=== PATIENT | female | born 1945 | race Caucasian/White ===

== ENCOUNTER → 2018-03-08 | Outpatient (CLI) | payer BC ==
[~2018-03-08] MED LIST: ALUM320SU PO; AMLO10 PO; AMLO5 PO; ASPI325 PO; ASPI81EC PO; ATOR20 PO; AZAR; CARV25 PO; CEPH500 PO; CLON.1 PO; CLON1; CYAN500 PO; DILT360ER; DILT360ER PO; FAMO20 PO; FERR160 PO; FURO40 PO; GABA100 PO; HYDACE5 PO; HYDRA50 PO; Humalog100 UNIT/1; INSLI100I; INSUASPI SUBQ; INSULANI; INSULANPEN; IRON150C PO; LEVFLO250 PO; LOSA50 PO; LOSARTAN POTAS100 MG PO; META800 PO; METF500; MINO10 PO; ONDA4ODT MM; PANT40 PO; PIOG45; PIOG45 PO; PROC10 PO; PROM25 PO; VITAMIN D31000 UNIT PO
[2018-03-08 18:30] LABS: BASOPHILS ABSOLUTE AUTO 0.02 K/mm3 (0.00-0.23); BASOPHILS PERCENT AUTO 0 % (0-2); EOSINOPHILS ABSOLUTE AUTO 0.01 K/mm3 (0.00-0.68); EOSINOPHILS PERCENT AUTO 0 % (0-6); Hematocrit 33.3 % (33.0-51.0); Hemoglobin 10.8 g/dL (11.5-16.0); IMMATURE GRAN ABSOLUTE AUTO 0.02 K/mm3 (0.00-0.10); IMMATURE GRAN PERCENT AUTO 0 % (0-1); LYMPHOCYTES ABSOLUTE AUTO 1.89 K/mm3 (0.84-5.20); LYMPHOCYTES PERCENT AUTO 25 % (21-46); MONOCYTES PERCENT AUTO 5 % (4-13); Mean Corpuscular HGB 33.4 pg (26.0-34.0); Mean Corpuscular HGB Conc 32.4 g/dL (31.5-36.5); Mean Corpuscular Volume 103 fL (80-100); Mean Platelet Volume 11.3 fL (9.1-12.4); NEUTROPHILS ABSOLUTE AUTO 5.35 K/mm3 (1.96-9.15); NEUTROPHILS PERCENT AUTO 70 % (41-73); Platelet Count 194 K/mm3 (150-400); RDW Coefficient Variation 14.2 % (11.7-14.2); RDW Standard Deviation 52.8 fL (35.1-46.3); Red Blood Cell Count 3.23 M/mm3 (3.80-5.20); White Blood Cell Count 7.69 K/mm3 (4.00-11.30)
[2018-03-08 18:31] LABS: Alanine Aminotransfer (ALT/SGP 24 U/L (12-78); Albumin, Blood 3.3 g/dL (3.4-5.0); Albumin/Globulin Ratio 0.9 (0.8-1.8); Alk Phos 98 U/L (50-136); Amylase, Blood 60 U/L (25-115); Anion Gap 13 mmol/L (6-16); Aspartate Aminotrans (AST/SGOT 15 U/L (12-37); Bilirubin, Direct <0.1 mg/dL (0.0-0.3); Bilirubin, Indirect Unable to Calculate mg/dL (0.1-0.7); Bilirubin, Total 0.4 mg/dL (0.1-1.0); Blood Urea Nitrogen 43 mg/dL (8-24); Bun/Creatinine Ratio 13.1 (12.0-20.0); CO2, Blood 17 mmol/L (21-32); Calcium, Blood 7.7 mg/dL (8.5-10.1); Chloride, Blood 111 mmol/L (98-108); Creatinine, Blood 3.28 mg/dL (0.40-1.00); Globulin, Blood 3.5 g/dL (2.2-4.0); Glomerular Filtration Rate 15 (60-); Glucose, Blood 233 mg/dL (70-99); Phosphorus, Blood 4.7 mg/dL (2.5-4.9); Sodium, Blood 141 mmol/L (136-145); Total Protein, Blood 6.8 g/dL (6.4-8.2)
== END | disposition home or self-care (01) ==
LOC: LAB SHORT 17:00 → LAB 17:00
PROVIDERS: Internal Medicine Nephrology
DX: N18.4 Chronic kidney disease, stage 4 (severe) (principal); D63.1 Anemia in chronic kidney disease; N25.81 Secondary hyperparathyroidism of renal origin; E55.9 Vitamin D deficiency, unspecified; E78.00 Pure hypercholesterolemia, unspecified; R76.9 Abnormal immunological finding in serum, unspecified; R94.5 Abnormal results of liver function studies; R94.6 Abnormal results of thyroid function studies
CPT/HCPCS: 80053; 82150; 82248; 82306; 83690; 84100; 85025

== ENCOUNTER 2018-03-09 09:09 | Inpatient (IN) | payer BC ==
[~2018-03-09] VITALS: Ht 167.6 cm; Wt 67.0 kg
[~2018-03-09 09:09] MED LIST changes: -ALUM320SU PO; -CLON.1 PO; -GABA100 PO; -Humalog100 UNIT/1; -LEVFLO250 PO; -ONDA4ODT MM; -PANT40 PO; -VITAMIN D31000 UNIT PO
[2018-03-09 10:00] LABS: Calcium, Ionized (POC) 1.08 mmol/L (1.10-1.46); Chloride (POC) 114 mmol/L (98-108); Creatinine (POC) 3.9 mg/dL (0.6-1.0); Glucose (ISTAT POC) 432 mg/dL (70-99); Hemoglobin (POC) 11.2 g/dL (12.0-16.0); Potassium (POC) 4.7 mmol/L (3.5-5.5); Sodium (POC) 143 mmol/L (135-148); Total CO2 (POC) 13 mmol/L (21-32)
[2018-03-09 10:10] LABS: PCO2 Arterial 25.6 mmHg (35-45); PO2 Arterial 89.6 mmHg (80-100); pH Blood Arterial 7.22 (7.35-7.45)
[2018-03-09 10:33] LABS: BASOPHILS ABSOLUTE AUTO 0.03 K/mm3 (0.00-0.23); BASOPHILS PERCENT AUTO 0 % (0-2); EOSINOPHILS PERCENT AUTO 0 % (0-6); Hematocrit 36.5 % (33.0-51.0); Hemoglobin 11.4 g/dL (11.5-16.0); IMMATURE GRAN ABSOLUTE AUTO 0.08 K/mm3 (0.00-0.10); IMMATURE GRAN PERCENT AUTO 1 % (0-1); LYMPHOCYTES ABSOLUTE AUTO 2.45 K/mm3 (0.84-5.20); LYMPHOCYTES PERCENT AUTO 20 % (21-46); MONOCYTES ABSOLUTE AUTO 0.55 K/mm3 (0.16-1.47); MONOCYTES PERCENT AUTO 4 % (4-13); Mean Corpuscular HGB 32.2 pg (26.0-34.0); Mean Corpuscular HGB Conc 31.2 g/dL (31.5-36.5); Mean Corpuscular Volume 103 fL (80-100); Mean Platelet Volume 11.6 fL (9.1-12.4); NEUTROPHILS ABSOLUTE AUTO 9.25 K/mm3 (1.96-9.15); NEUTROPHILS PERCENT AUTO 75 % (41-73); Platelet Count 204 K/mm3 (150-400); RDW Coefficient Variation 14.4 % (11.7-14.2); RDW Standard Deviation 53.8 fL (35.1-46.3); Red Blood Cell Count 3.54 M/mm3 (3.80-5.20); White Blood Cell Count 12.36 K/mm3 (4.00-11.30)
[2018-03-09 10:55] LABS: Albumin, Blood 3.5 g/dL (3.4-5.0); Albumin/Globulin Ratio 0.8 (0.8-1.8); Bilirubin, Total 0.5 mg/dL (0.1-1.0); Bun/Creatinine Ratio 13.1 (12.0-20.0); Calcium, Blood 8.3 mg/dL (8.5-10.1); Creatinine, Blood 3.58 mg/dL (0.40-1.00); Globulin, Blood 4.3 g/dL (2.2-4.0); Potassium, Blood 4.5 mmol/L (3.5-5.5); Total Protein, Blood 7.8 g/dL (6.4-8.2); Troponin I 0.155 ng/mL (0.000-0.040)
[2018-03-09] MEDS ORDERED: CLON.1 PO (11:48)
[2018-03-09] MEDS ORDERED: GABA100 PO (11:49)
[2018-03-09] MEDS ORDERED: FURO40 PO (11:50)
[2018-03-09] MEDS ORDERED: PANT40 PO (11:51)
[2018-03-09] MEDS ORDERED: ALUM320SU PO (11:56)
[2018-03-09] MEDS ORDERED: LEVFLO250 PO (11:57)
[2018-03-09] MEDS ORDERED: ONDA4ODT MM (11:58)
[2018-03-09 16:32] LABS: Source, Urine Catheter
[2018-03-09 16:42] LABS: Troponin I 0.375 ng/mL (0.000-0.040)
[2018-03-09 16:42] LABS: Appearance, Urine Hazy (Clear); Bilirubin, Urine Neg (Neg); Blood, Urine 3+ (Neg); Color, Urine Yellow (P-Yellow); Glucose Qualitative, Urine 4+ (Neg); Ketones, Urine 3+ (Neg); Leukocyte Esterase, Urine Neg (Neg); Nitrite, Urine Neg (Neg); Protein, Urine 4+ (Neg); Specific Gravity, Urine 1.015 (1.003-1.022); Urobilinogen, Urine NORM (Normal)
[2018-03-09] MEDS ORDERED: Humalog100 UNIT/1 (16:52)
[2018-03-09 17:01] LABS: Amorphous Light (0-Heavy); White Blood Cells, Urine 0-2 /hpf (0-5)
[2018-03-09 17:03] LABS: Bacteria Few /hpf; Squamous Epithelial Cells Few /hpf (Few)
[2018-03-09] MEDS ORDERED: VITAMIN D31000 UNIT PO (17:04)
[2018-03-09 17:34] LABS: Beta-hydroxybutyrate 73.1 mg/dL (0.2-2.8); Potassium, Blood 4.7 mmol/L (3.5-5.5)
[2018-03-09 18:21] LABS: Bun/Creatinine Ratio 14.2 (12.0-20.0); Creatinine, Blood 3.37 mg/dL (0.40-1.00); Potassium, Blood 4.3 mmol/L (3.5-5.5)
[2018-03-09 21:41] LABS: Bun/Creatinine Ratio 14.3 (12.0-20.0); Calcium, Blood 7.9 mg/dL (8.5-10.1); Creatinine, Blood 3.42 mg/dL (0.40-1.00); Potassium, Blood 3.5 mmol/L (3.5-5.5)
[2018-03-10 00:30] LABS: Potassium, Blood 3.4 mmol/L (3.5-5.5)
[2018-03-10 04:13] LABS: Hemoglobin 9.8 g/dL (11.5-16.0)
[2018-03-10 04:38] LABS: Albumin, Blood 2.9 g/dL (3.4-5.0); Anion Gap 9 mmol/L (6-16); Blood Urea Nitrogen 46 mg/dL (8-24); Bun/Creatinine Ratio 13.2 (12.0-20.0); CO2, Blood 22 mmol/L (21-32); Chloride, Blood 122 mmol/L (98-108); Creatinine, Blood 3.48 mg/dL (0.40-1.00); Glomerular Filtration Rate 14 (60-); Glucose, Blood 135 mg/dL (70-99); Magnesium, Blood 2.1 mg/dL (1.6-2.4); Phosphorus, Blood 2.5 mg/dL (2.5-4.9); Potassium, Blood 3.1 mmol/L (3.5-5.5); Sodium, Blood 153 mmol/L (136-145); Vancomycin, Random 14.5 ug/mL
[2018-03-11 03:31] LABS: Hematocrit 30.2 % (33.0-51.0); Hemoglobin 9.3 g/dL (11.5-16.0)
[2018-03-11 03:52] LABS: Albumin, Blood 2.5 g/dL (3.4-5.0); Anion Gap 10 mmol/L (6-16); Blood Urea Nitrogen 35 mg/dL (8-24); Bun/Creatinine Ratio 11.3 (12.0-20.0); CHOL/HDL RATIO 3.2; CO2, Blood 22 mmol/L (21-32); Calcium, Blood 7.7 mg/dL (8.5-10.1); Chloride, Blood 115 mmol/L (98-108); Cholesterol 146 mg/dL (50-200); Creatinine, Blood 3.09 mg/dL (0.40-1.00); Glomerular Filtration Rate 16 (60-); Glucose, Blood 160 mg/dL (70-99); HDL Cholesterol 46 mg/dL (>39); Magnesium, Blood 2.1 mg/dL (1.6-2.4); Phosphorus, Blood 3.1 mg/dL (2.5-4.9); Potassium, Blood 3.9 mmol/L (3.5-5.5); Sodium, Blood 147 mmol/L (136-145)
[2018-03-11 03:53] LABS: LDL/HDL RATIO 1.3; Low Density Lipoprotein Chol 59 mg/dL (0-110); Triglycerides 206 mg/dL (30-160); Very Low Density Lipoprot Chol 41 mg/dL (6-32)
== END 2018-03-11 14:01 | disposition home or self-care (01) | DRG 871 ==
LOC: ER 09:09 → ICUW 11:20 → PCU 11:20 → MEDS 11:20 → PCU 13:17 → MEDS 13:41 → PCU 14:28 → ICUW 15:47 → PCU 03-10 15:30
PROVIDERS: Emergency Medicine; Internal Medicine; Internal Medicine Nephrology
DX: A41.9 Sepsis, unspecified organism (principal); E11.10 Type 2 diabetes mellitus with ketoacidosis without coma; N17.0 Acute kidney failure with tubular necrosis; J18.9 Pneumonia, unspecified organism; I21.4 Non-ST elevation (NSTEMI) myocardial infarction; I13.2 Hypertensive heart and chronic kidney disease with heart failure and with stage 5 chronic kidney disease, or end stage renal disease; N18.5 Chronic kidney disease, stage 5; I50.30 Unspecified diastolic (congestive) heart failure; E87.0 Hyperosmolality and hypernatremia; E11.22 Type 2 diabetes mellitus with diabetic chronic kidney disease; Z79.4 Long term (current) use of insulin; D63.8 Anemia in other chronic diseases classified elsewhere; E21.3 Hyperparathyroidism, unspecified; I25.10 Atherosclerotic heart disease of native coronary artery without angina pectoris; R65.20 Severe sepsis without septic shock; E87.6 Hypokalemia; E86.9 Volume depletion, unspecified
CPT/HCPCS: 36415; 36600; 51702; 71045; 74176; 80047; 80048; 80051; 80053; 80061; 80069; 80202; 81001; 82010; 82150; 82248; 82306; 82803; 82947; 83036; 83605; 83690; 83735; 83880; 83930; 84100; 84295; 84484; 85014; 85018; 85025; 87040; 87086; 87493; 93005; 93010; 93306; 96361; 96374; 96375; 99285-25; C9113; J0360; J0696; J0881; J1650; J1815; J2405; J2765; J3370; J3480; J7030; J7042; J7050

== ENCOUNTER 2018-04-20 09:20 | Inpatient (IN) | payer BC ==
[~2018-04-20] VITALS: Ht 170.2 cm; Wt 65.2 kg
[~2018-04-20 09:20] MED LIST changes: +ALUM320SU PO; +CLON.1 PO; +GABA100 PO; +Humalog100 UNIT/1 SC; -INSULANPEN; +INSULANPEN SC; +LEVFLO250 PO; -LOSARTAN POTAS100 MG PO; +ONDA4ODT MM; +PANT40 PO; +VITAMIN D31000 UNIT PO
[2018-04-20] MEDS ORDERED: Omeprazole20 M1 PO (09:57)
[2018-04-20] MEDS ORDERED: Adalat Cc30 MG PO (10:03)
[2018-04-20] MEDS ORDERED: POTCHL10ER PO (10:05)
[2018-04-20 10:09] LABS: BASOPHILS ABSOLUTE AUTO 0.04 K/mm3 (0.00-0.23); BASOPHILS PERCENT AUTO 0 % (0-2); EOSINOPHILS ABSOLUTE AUTO 0.06 K/mm3 (0.00-0.68); EOSINOPHILS PERCENT AUTO 0 % (0-6); Hematocrit 37.7 % (33.0-51.0); IMMATURE GRAN ABSOLUTE AUTO 0.08 K/mm3 (0.00-0.10); IMMATURE GRAN PERCENT AUTO 1 % (0-1); LYMPHOCYTES ABSOLUTE AUTO 2.61 K/mm3 (0.84-5.20); LYMPHOCYTES PERCENT AUTO 17 % (21-46); MONOCYTES PERCENT AUTO 8 % (4-13); Mean Corpuscular HGB 31.9 pg (26.0-34.0); Mean Corpuscular HGB Conc 31.8 g/dL (31.5-36.5); Mean Corpuscular Volume 100 fL (80-100); Mean Platelet Volume 11.2 fL (9.1-12.4); NEUTROPHILS ABSOLUTE AUTO 11.62 K/mm3 (1.96-9.15); NEUTROPHILS PERCENT AUTO 74 % (41-73); Platelet Count 231 K/mm3 (150-400); RDW Coefficient Variation 13.4 % (11.7-14.2); RDW Standard Deviation 49.2 fL (35.1-46.3); Red Blood Cell Count 3.76 M/mm3 (3.80-5.20); White Blood Cell Count 15.61 K/mm3 (4.00-11.30)
[2018-04-20 10:27] LABS: Albumin/Globulin Ratio 0.7 (0.8-1.8); Bilirubin, Total 0.4 mg/dL (0.1-1.0); Bun/Creatinine Ratio 14.5 (12.0-20.0); Calcium, Blood 8.4 mg/dL (8.5-10.1); Creatinine, Blood 3.51 mg/dL (0.40-1.00); Globulin, Blood 4.5 g/dL (2.2-4.0); Potassium, Blood 4.7 mmol/L (3.5-5.5); Total Protein, Blood 7.5 g/dL (6.4-8.2); Troponin I 0.065 ng/mL (0.000-0.040)
[2018-04-21 04:58] LABS: BASOPHILS ABSOLUTE AUTO 0.02 K/mm3 (0.00-0.23); BASOPHILS PERCENT AUTO 0 % (0-2); EOSINOPHILS ABSOLUTE AUTO 0.04 K/mm3 (0.00-0.68); EOSINOPHILS PERCENT AUTO 0 % (0-6); Hematocrit 33.8 % (33.0-51.0); Hemoglobin 10.8 g/dL (11.5-16.0); IMMATURE GRAN ABSOLUTE AUTO 0.08 K/mm3 (0.00-0.10); IMMATURE GRAN PERCENT AUTO 1 % (0-1); LYMPHOCYTES ABSOLUTE AUTO 2.55 K/mm3 (0.84-5.20); LYMPHOCYTES PERCENT AUTO 22 % (21-46); MONOCYTES ABSOLUTE AUTO 0.75 K/mm3 (0.16-1.47); MONOCYTES PERCENT AUTO 6 % (4-13); Mean Corpuscular HGB 32.2 pg (26.0-34.0); Mean Corpuscular Volume 101 fL (80-100); Mean Platelet Volume 11.6 fL (9.1-12.4); NEUTROPHILS ABSOLUTE AUTO 8.27 K/mm3 (1.96-9.15); NEUTROPHILS PERCENT AUTO 71 % (41-73); Platelet Count 194 K/mm3 (150-400); RDW Coefficient Variation 13.8 % (11.7-14.2); RDW Standard Deviation 51.5 fL (35.1-46.3); Red Blood Cell Count 3.35 M/mm3 (3.80-5.20); White Blood Cell Count 11.71 K/mm3 (4.00-11.30)
[2018-04-21 05:23] LABS: Albumin, Blood 2.2 g/dL (3.4-5.0); Albumin/Globulin Ratio 0.5 (0.8-1.8); Alk Phos 156 U/L (50-136); Anion Gap 10 mmol/L (6-16); Aspartate Aminotrans (AST/SGOT 806 U/L (12-37); Bilirubin, Total 0.6 mg/dL (0.1-1.0); Blood Urea Nitrogen 46 mg/dL (8-24); Bun/Creatinine Ratio 13.8 (12.0-20.0); CO2, Blood 20 mmol/L (21-32); Calcium, Blood 7.8 mg/dL (8.5-10.1); Chloride, Blood 112 mmol/L (98-108); Creatinine, Blood 3.34 mg/dL (0.40-1.00); Globulin, Blood 4.1 g/dL (2.2-4.0); Glomerular Filtration Rate 14 (60-); Glucose, Blood 185 mg/dL (70-99); Magnesium, Blood 1.6 mg/dL (1.6-2.4); Phosphorus, Blood 2.6 mg/dL (2.5-4.9); Potassium, Blood 4.3 mmol/L (3.5-5.5); Sodium, Blood 142 mmol/L (136-145); Total Protein, Blood 6.3 g/dL (6.4-8.2); Vancomycin, Random 16.6 ug/mL
[2018-04-21 05:27] LABS: Alanine Aminotransfer (ALT/SGP 274 U/L (12-78)
[2018-04-22 04:55] LABS: BASOPHILS ABSOLUTE AUTO 0.03 K/mm3 (0.00-0.23); BASOPHILS PERCENT AUTO 0 % (0-2); EOSINOPHILS ABSOLUTE AUTO 0.19 K/mm3 (0.00-0.68); EOSINOPHILS PERCENT AUTO 1 % (0-6); Hematocrit 30.6 % (33.0-51.0); Hemoglobin 9.6 g/dL (11.5-16.0); IMMATURE GRAN ABSOLUTE AUTO 0.13 K/mm3 (0.00-0.10); IMMATURE GRAN PERCENT AUTO 1 % (0-1); LYMPHOCYTES ABSOLUTE AUTO 2.34 K/mm3 (0.84-5.20); LYMPHOCYTES PERCENT AUTO 16 % (21-46); MONOCYTES ABSOLUTE AUTO 0.94 K/mm3 (0.16-1.47); MONOCYTES PERCENT AUTO 6 % (4-13); Mean Corpuscular HGB 31.5 pg (26.0-34.0); Mean Corpuscular HGB Conc 31.4 g/dL (31.5-36.5); Mean Corpuscular Volume 100 fL (80-100); NEUTROPHILS ABSOLUTE AUTO 11.12 K/mm3 (1.96-9.15); NEUTROPHILS PERCENT AUTO 75 % (41-73); Platelet Count 173 K/mm3 (150-400); RDW Coefficient Variation 13.7 % (11.7-14.2); RDW Standard Deviation 51.2 fL (35.1-46.3); Red Blood Cell Count 3.05 M/mm3 (3.80-5.20); White Blood Cell Count 14.75 K/mm3 (4.00-11.30)
[2018-04-22 05:18] LABS: Anion Gap 12 mmol/L (6-16); Blood Urea Nitrogen 54 mg/dL (8-24); Bun/Creatinine Ratio 12.8 (12.0-20.0); CO2, Blood 17 mmol/L (21-32); Calcium, Blood 8.2 mg/dL (8.5-10.1); Chloride, Blood 110 mmol/L (98-108); Creatinine, Blood 4.22 mg/dL (0.40-1.00); Glomerular Filtration Rate 11 (60-); Glucose, Blood 249 mg/dL (70-99); Magnesium, Blood 1.7 mg/dL (1.6-2.4); Phosphorus, Blood 3.4 mg/dL (2.5-4.9); Potassium, Blood 4.5 mmol/L (3.5-5.5); Sodium, Blood 139 mmol/L (136-145); Vancomycin, Random 22.3 ug/mL
[2018-04-22 12:55] LABS: Vancomycin, Random 14.3 ug/mL
[2018-04-23 04:38] LABS: Hematocrit 25.3 % (33.0-51.0); Hemoglobin 8.1 g/dL (11.5-16.0)
[2018-04-23 04:58] LABS: Albumin, Blood 1.8 g/dL (3.4-5.0); Anion Gap 10 mmol/L (6-16); Blood Urea Nitrogen 41 mg/dL (8-24); Bun/Creatinine Ratio 9.4 (12.0-20.0); CO2, Blood 28 mmol/L (21-32); Calcium, Blood 7.5 mg/dL (8.5-10.1); Chloride, Blood 97 mmol/L (98-108); Creatinine, Blood 4.34 mg/dL (0.40-1.00); Glomerular Filtration Rate 11 (60-); Glucose, Blood 242 mg/dL (70-99); Magnesium, Blood 1.8 mg/dL (1.6-2.4); Phosphorus, Blood 3.3 mg/dL (2.5-4.9); Potassium, Blood 3.7 mmol/L (3.5-5.5); Sodium, Blood 135 mmol/L (136-145)
[2018-04-24 02:17] LABS: HBSAG SCREEN Negative (Negative); HEP A AB, IGM Negative (Negative); HEP B CORE AB, IGM Negative (Negative); HEP C VIRUS AB 0.1 (0.0-0.9)
[2018-04-24 05:07] LABS: BASOPHILS ABSOLUTE AUTO 0.02 K/mm3 (0.00-0.23); BASOPHILS PERCENT AUTO 0 % (0-2); EOSINOPHILS ABSOLUTE AUTO 0.19 K/mm3 (0.00-0.68); EOSINOPHILS PERCENT AUTO 2 % (0-6); Hematocrit 25.3 % (33.0-51.0); Hemoglobin 7.9 g/dL (11.5-16.0); IMMATURE GRAN ABSOLUTE AUTO 0.06 K/mm3 (0.00-0.10); IMMATURE GRAN PERCENT AUTO 1 % (0-1); LYMPHOCYTES ABSOLUTE AUTO 1.86 K/mm3 (0.84-5.20); LYMPHOCYTES PERCENT AUTO 20 % (21-46); MONOCYTES ABSOLUTE AUTO 0.92 K/mm3 (0.16-1.47); MONOCYTES PERCENT AUTO 10 % (4-13); Mean Corpuscular HGB 31.1 pg (26.0-34.0); Mean Corpuscular HGB Conc 31.2 g/dL (31.5-36.5); Mean Corpuscular Volume 100 fL (80-100); Mean Platelet Volume 11.9 fL (9.1-12.4); NEUTROPHILS ABSOLUTE AUTO 6.36 K/mm3 (1.96-9.15); NEUTROPHILS PERCENT AUTO 68 % (41-73); Platelet Count 113 K/mm3 (150-400); RDW Coefficient Variation 13.9 % (11.7-14.2); RDW Standard Deviation 50.4 fL (35.1-46.3); Red Blood Cell Count 2.54 M/mm3 (3.80-5.20); White Blood Cell Count 9.41 K/mm3 (4.00-11.30)
[2018-04-24 05:22] LABS: Albumin, Blood 1.7 g/dL (3.4-5.0); Anion Gap 7 mmol/L (6-16); Blood Urea Nitrogen 34 mg/dL (8-24); Bun/Creatinine Ratio 8.1 (12.0-20.0); CO2, Blood 31 mmol/L (21-32); Calcium, Blood 7.8 mg/dL (8.5-10.1); Chloride, Blood 97 mmol/L (98-108); Creatinine, Blood 4.22 mg/dL (0.40-1.00); Glomerular Filtration Rate 11 (60-); Glucose, Blood 185 mg/dL (70-99); Phosphorus, Blood 4.1 mg/dL (2.5-4.9); Potassium, Blood 3.7 mmol/L (3.5-5.5); Sodium, Blood 135 mmol/L (136-145); Vancomycin, Random 20.7 ug/mL
[2018-04-24 11:49] LABS: Vancomycin, Random 11.6 ug/mL
[2018-04-25 05:37] LABS: BASOPHILS ABSOLUTE AUTO 0.02 K/mm3 (0.00-0.23); BASOPHILS PERCENT AUTO 0 % (0-2); EOSINOPHILS ABSOLUTE AUTO 0.24 K/mm3 (0.00-0.68); EOSINOPHILS PERCENT AUTO 3 % (0-6); Hematocrit 28.6 % (33.0-51.0); Hemoglobin 9.1 g/dL (11.5-16.0); IMMATURE GRAN ABSOLUTE AUTO 0.05 K/mm3 (0.00-0.10); IMMATURE GRAN PERCENT AUTO 1 % (0-1); LYMPHOCYTES ABSOLUTE AUTO 2.35 K/mm3 (0.84-5.20); LYMPHOCYTES PERCENT AUTO 28 % (21-46); MONOCYTES ABSOLUTE AUTO 0.89 K/mm3 (0.16-1.47); MONOCYTES PERCENT AUTO 11 % (4-13); Mean Corpuscular HGB Conc 31.8 g/dL (31.5-36.5); Mean Platelet Volume 12.3 fL (9.1-12.4); NEUTROPHILS ABSOLUTE AUTO 4.88 K/mm3 (1.96-9.15); NEUTROPHILS PERCENT AUTO 58 % (41-73); Platelet Count 145 K/mm3 (150-400); RDW Coefficient Variation 15.4 % (11.7-14.2); RDW Standard Deviation 54.8 fL (35.1-46.3); Red Blood Cell Count 2.94 M/mm3 (3.80-5.20); White Blood Cell Count 8.43 K/mm3 (4.00-11.30)
[2018-04-25 05:38] LABS: Mean Corpuscular Volume 97 fL (80-100)
[2018-04-25 06:07] LABS: Albumin, Blood 1.8 g/dL (3.4-5.0); Anion Gap 11 mmol/L (6-16); Blood Urea Nitrogen 26 mg/dL (8-24); Bun/Creatinine Ratio 7.2 (12.0-20.0); CO2, Blood 29 mmol/L (21-32); Calcium, Blood 8.1 mg/dL (8.5-10.1); Chloride, Blood 95 mmol/L (98-108); Creatinine, Blood 3.59 mg/dL (0.40-1.00); Glomerular Filtration Rate 13 (60-); Glucose, Blood 174 mg/dL (70-99); Magnesium, Blood 1.9 mg/dL (1.6-2.4); Phosphorus, Blood 4.2 mg/dL (2.5-4.9); Potassium, Blood 3.3 mmol/L (3.5-5.5); Sodium, Blood 135 mmol/L (136-145)
[2018-04-25 11:46] LABS: Vancomycin, Random 14.3 ug/mL
[2018-04-26 04:46] LABS: BASOPHILS ABSOLUTE AUTO 0.03 K/mm3 (0.00-0.23); BASOPHILS PERCENT AUTO 0 % (0-2); EOSINOPHILS ABSOLUTE AUTO 0.24 K/mm3 (0.00-0.68); EOSINOPHILS PERCENT AUTO 3 % (0-6); Hematocrit 30.3 % (33.0-51.0); Hemoglobin 9.6 g/dL (11.5-16.0); IMMATURE GRAN ABSOLUTE AUTO 0.07 K/mm3 (0.00-0.10); IMMATURE GRAN PERCENT AUTO 1 % (0-1); LYMPHOCYTES ABSOLUTE AUTO 2.26 K/mm3 (0.84-5.20); LYMPHOCYTES PERCENT AUTO 27 % (21-46); MONOCYTES ABSOLUTE AUTO 0.83 K/mm3 (0.16-1.47); MONOCYTES PERCENT AUTO 10 % (4-13); Mean Corpuscular HGB 31.4 pg (26.0-34.0); Mean Corpuscular HGB Conc 31.7 g/dL (31.5-36.5); Mean Corpuscular Volume 99 fL (80-100); Mean Platelet Volume 11.9 fL (9.1-12.4); NEUTROPHILS ABSOLUTE AUTO 5.07 K/mm3 (1.96-9.15); NEUTROPHILS PERCENT AUTO 60 % (41-73); Platelet Count 143 K/mm3 (150-400); RDW Coefficient Variation 14.8 % (11.7-14.2); RDW Standard Deviation 53.9 fL (35.1-46.3); Red Blood Cell Count 3.06 M/mm3 (3.80-5.20)
[2018-04-26 05:03] LABS: Albumin, Blood 1.8 g/dL (3.4-5.0); Anion Gap 7 mmol/L (6-16); Blood Urea Nitrogen 24 mg/dL (8-24); Bun/Creatinine Ratio 7.2 (12.0-20.0); CO2, Blood 30 mmol/L (21-32); Chloride, Blood 100 mmol/L (98-108); Creatinine, Blood 3.32 mg/dL (0.40-1.00); Glomerular Filtration Rate 14 (60-); Glucose, Blood 167 mg/dL (70-99); Magnesium, Blood 1.9 mg/dL (1.6-2.4); Phosphorus, Blood 3.4 mg/dL (2.5-4.9); Potassium, Blood 3.8 mmol/L (3.5-5.5); Sodium, Blood 137 mmol/L (136-145)
[2018-04-26 15:23] LABS: Vancomycin, Random 24.8 ug/mL
[2018-04-27 05:05] LABS: BASOPHILS ABSOLUTE AUTO 0.02 K/mm3 (0.00-0.23); BASOPHILS PERCENT AUTO 0 % (0-2); EOSINOPHILS ABSOLUTE AUTO 0.23 K/mm3 (0.00-0.68); EOSINOPHILS PERCENT AUTO 2 % (0-6); Hematocrit 30.8 % (33.0-51.0); Hemoglobin 9.6 g/dL (11.5-16.0); IMMATURE GRAN ABSOLUTE AUTO 0.09 K/mm3 (0.00-0.10); IMMATURE GRAN PERCENT AUTO 1 % (0-1); LYMPHOCYTES PERCENT AUTO 21 % (21-46); MONOCYTES ABSOLUTE AUTO 1.09 K/mm3 (0.16-1.47); MONOCYTES PERCENT AUTO 11 % (4-13); Mean Corpuscular HGB 30.3 pg (26.0-34.0); Mean Corpuscular HGB Conc 31.2 g/dL (31.5-36.5); Mean Corpuscular Volume 97 fL (80-100); Mean Platelet Volume 11.8 fL (9.1-12.4); NEUTROPHILS PERCENT AUTO 66 % (41-73); Platelet Count 183 K/mm3 (150-400); RDW Coefficient Variation 14.5 % (11.7-14.2); RDW Standard Deviation 52.1 fL (35.1-46.3); Red Blood Cell Count 3.17 M/mm3 (3.80-5.20); White Blood Cell Count 10.23 K/mm3 (4.00-11.30)
[2018-04-27 05:27] LABS: Albumin, Blood 1.9 g/dL (3.4-5.0); Anion Gap 9 mmol/L (6-16); Blood Urea Nitrogen 32 mg/dL (8-24); CO2, Blood 29 mmol/L (21-32); Calcium, Blood 8.1 mg/dL (8.5-10.1); Chloride, Blood 101 mmol/L (98-108); Creatinine, Blood 4.58 mg/dL (0.40-1.00); Glomerular Filtration Rate 10 (60-); Glucose, Blood 119 mg/dL (70-99); Magnesium, Blood 1.8 mg/dL (1.6-2.4); Potassium, Blood 3.6 mmol/L (3.5-5.5); Sodium, Blood 139 mmol/L (136-145)
[2018-04-27 11:39] LABS: Vancomycin, Random 24.2 ug/mL
[2018-04-27 12:27] LABS: Vancomycin, Random 13.8 ug/mL
[2018-04-27] MEDS ORDERED: BUME2 PO (16:30)
[2018-04-27] MEDS ORDERED: Isosorbide Mono30 MG PO (16:36)
[2018-04-27] MEDS ORDERED: LEVFLO500 PO (16:37)
== END 2018-04-27 18:55 | disposition home health service (06) | DRG 193 ==
LOC: ER 09:20 → MEDS 11:24
PROVIDERS: Emergency Medicine; Hospitalist; Internal Medicine Endocrinology, Diabetes & Metabolism; Internal Medicine Nephrology; Pharmacist; Surgery
PROC: B5131ZA Fluoroscopy of Right Jugular Veins using Low Osmolar Contrast, Guidance (ICD-10-PCS; 2018-04-22)
PROC: 5A1D70Z Performance of Urinary Filtration, Intermittent, Less than 6 Hours Per Day (ICD-10-PCS; 2018-04-22)
PROC: 05HM33Z Insertion of Infusion Device into Right Internal Jugular Vein, Percutaneous Approach (ICD-10-PCS; principal; 2018-04-22 07:30)
PROC: 5A1D70Z Performance of Urinary Filtration, Intermittent, Less than 6 Hours Per Day (ICD-10-PCS; 2018-04-23)
PROC: 30233N1 Transfusion of Nonautologous Red Blood Cells into Peripheral Vein, Percutaneous Approach (ICD-10-PCS; 2018-04-24)
PROC: 5A1D70Z Performance of Urinary Filtration, Intermittent, Less than 6 Hours Per Day (ICD-10-PCS; 2018-04-24)
PROC: 5A1D70Z Performance of Urinary Filtration, Intermittent, Less than 6 Hours Per Day (ICD-10-PCS; 2018-04-25)
PROC: 5A1D70Z Performance of Urinary Filtration, Intermittent, Less than 6 Hours Per Day (ICD-10-PCS; 2018-04-27)
DX: J18.9 Pneumonia, unspecified organism (principal); N18.6 End stage renal disease; E43 Unspecified severe protein-calorie malnutrition; N17.9 Acute kidney failure, unspecified; E87.1 Hypo-osmolality and hyponatremia; I13.2 Hypertensive heart and chronic kidney disease with heart failure and with stage 5 chronic kidney disease, or end stage renal disease; N25.81 Secondary hyperparathyroidism of renal origin; I50.30 Unspecified diastolic (congestive) heart failure; E87.2 Acidosis; E11.22 Type 2 diabetes mellitus with diabetic chronic kidney disease; E88.09 Other disorders of plasma-protein metabolism, not elsewhere classified; E11.21 Type 2 diabetes mellitus with diabetic nephropathy; Y95 Nosocomial condition; I95.9 Hypotension, unspecified; E11.65 Type 2 diabetes mellitus with hyperglycemia; E87.6 Hypokalemia; D63.1 Anemia in chronic kidney disease; K21.9 Gastro-esophageal reflux disease without esophagitis; E11.42 Type 2 diabetes mellitus with diabetic polyneuropathy; E11.319 Type 2 diabetes mellitus with unspecified diabetic retinopathy without macular edema; E11.51 Type 2 diabetes mellitus with diabetic peripheral angiopathy without gangrene; E86.9 Volume depletion, unspecified; E78.5 Hyperlipidemia, unspecified; I25.10 Atherosclerotic heart disease of native coronary artery without angina pectoris; Z88.5 Allergy status to narcotic agent; Z88.8 Allergy status to other drugs, medicaments and biological substances; Z79.82 Long term (current) use of aspirin; Z79.4 Long term (current) use of insulin; Z79.899 Other long term (current) drug therapy; I25.2 Old myocardial infarction; Z68.24 Body mass index [BMI] 24.0-24.9, adult
CPT/HCPCS: 36415; 36416; 36430; 71046; 71250; 74230; 77001; 80053; 80069; 80074; 80202; 82947; 83605; 83735; 83880; 84100; 84145; 84484; 85014; 85018; 85025; 86317; 86850; 86900; 86901; 86923; 87040; 92610; 92611; 93005; 93010; 94760; 96365; 96367; 97116; 97162; 97166; 97530; 97535; 99285-25; C1750; G8978; G8979; G8987; G8988; G8996; G8997; G8998; J0360; J0456; J0692; J0696; J0881; J1644; J1956; J2001; J2250; J2405; J3010; J3370; J7030; J7050; P9016

== ENCOUNTER 2019-02-15 18:13 | Observation (INO) | payer BC ==
[~2019-02-15] VITALS: Ht 162.6 cm; Wt 65.8 kg
[~2019-02-15 18:13] MED LIST changes: -ATOR20 PO; +Adalat Cc30 MG PO; +BUME2 PO; -CYAN500 PO; +Isosorbide Mono30 MG PO; +LEVFLO500 PO; +Lipitor20 MG PO; +Omeprazole20 M1 PO; -PANT40 PO; +POTCHL10ER PO; +Prilosec Otc20 MG PO; -VITAMIN D31000 UNIT PO; +Vitamin B-121000 MCG PO; +Vitamin D2000 UNIT PO
[2019-02-15 18:56] LABS: BASOPHILS ABSOLUTE AUTO 0.05 K/mm3 (0.00-0.23); BASOPHILS PERCENT AUTO 0 % (0-2); EOSINOPHILS ABSOLUTE AUTO 0.04 K/mm3 (0.00-0.68); EOSINOPHILS PERCENT AUTO 0 % (0-6); Hematocrit 34.7 % (33.0-51.0); Hemoglobin 11.5 g/dL (11.5-16.0); IMMATURE GRAN ABSOLUTE AUTO 0.08 K/mm3 (0.00-0.10); IMMATURE GRAN PERCENT AUTO 1 % (0-1); LYMPHOCYTES ABSOLUTE AUTO 2.05 K/mm3 (0.84-5.20); LYMPHOCYTES PERCENT AUTO 13 % (21-46); MONOCYTES ABSOLUTE AUTO 0.75 K/mm3 (0.16-1.47); MONOCYTES PERCENT AUTO 5 % (4-13); Mean Corpuscular HGB 33.2 pg (26.0-34.0); Mean Corpuscular HGB Conc 33.1 g/dL (31.5-36.5); Mean Corpuscular Volume 100 fL (80-100); NEUTROPHILS ABSOLUTE AUTO 12.65 K/mm3 (1.96-9.15); NEUTROPHILS PERCENT AUTO 81 % (41-73); Platelet Count 222 K/mm3 (150-400); RDW Coefficient Variation 13.1 % (11.7-14.2); RDW Standard Deviation 47.9 fL (35.1-46.3); Red Blood Cell Count 3.46 M/mm3 (3.80-5.20); White Blood Cell Count 15.62 K/mm3 (4.00-11.30)
[2019-02-15 19:19] LABS: Albumin/Globulin Ratio 0.7 (0.8-1.8); Bilirubin, Total 0.5 mg/dL (0.1-1.0); Bun/Creatinine Ratio 10.4 (12.0-20.0); Calcium, Blood 8.9 mg/dL (8.5-10.1); Creatinine, Blood 4.89 mg/dL (0.40-1.00); Globulin, Blood 4.4 g/dL (2.2-4.0); Magnesium, Blood 2.2 mg/dL (1.6-2.4); Phosphorus, Blood 4.7 mg/dL (2.5-4.9); Potassium, Blood 4.5 mmol/L (3.5-5.5); Total Protein, Blood 7.4 g/dL (6.4-8.2)
[2019-02-15 20:03] LABS: Source, Urine Clean Catch
[2019-02-15 20:17] LABS: Bilirubin, Urine Neg (Neg); Blood, Urine 2+ (Neg); Glucose Qualitative, Urine 4+ (Neg); Ketones, Urine Neg (Neg); Leukocyte Esterase, Urine Neg (Neg); Nitrite, Urine Neg (Neg); Protein, Urine 4+ (Neg); Specific Gravity, Urine 1.015 (1.003-1.022); Urobilinogen, Urine NORM (Normal)
[2019-02-15 20:23] LABS: Appearance, Urine Clear (Clear); Color, Urine Yellow (P-Yellow); Red Blood Cells, Urine 0-2 /hpf (0-2); Squamous Epithelial Cells Many /hpf (Few)
[2019-02-15 20:24] LABS: Amorphous Light (0-Heavy); Bacteria Mod /hpf; Hyaline Casts 0-2 /lpf (0-2)
[2019-02-15] MEDS ORDERED: CLON.1 PO (21:11)
[2019-02-15] MEDS ORDERED: INSULANPEN PO (21:13)
[2019-02-15] MEDS ORDERED: Calcium Acetat667 MG PO (21:15)
[2019-02-15] MEDS ORDERED: NIFE30ER PO (21:16)
[2019-02-15] MEDS ORDERED: MERIBIN5 MG PO (21:16)
[2019-02-15] MEDS ORDERED: Lovastatin10 MG PO (21:18)
[2019-02-16 05:07] LABS: Hematocrit 34.1 % (33.0-51.0); Hemoglobin 11.1 g/dL (11.5-16.0); Mean Corpuscular HGB 33.2 pg (26.0-34.0); Mean Corpuscular HGB Conc 32.6 g/dL (31.5-36.5); Mean Corpuscular Volume 102 fL (80-100); Mean Platelet Volume 10.8 fL (9.1-12.4); Platelet Count 193 K/mm3 (150-400); RDW Standard Deviation 48.7 fL (35.1-46.3); Red Blood Cell Count 3.34 M/mm3 (3.80-5.20); White Blood Cell Count 14.14 K/mm3 (4.00-11.30)
[2019-02-16 05:32] LABS: Magnesium, Blood 2.1 mg/dL (1.6-2.4)
[2019-02-16 05:34] LABS: Alanine Aminotransfer (ALT/SGP 18 U/L (12-78); Albumin, Blood 2.7 g/dL (3.4-5.0); Albumin/Globulin Ratio 0.6 (0.8-1.8); Alk Phos 99 U/L (50-136); Anion Gap 11 mmol/L (6-16); Aspartate Aminotrans (AST/SGOT 14 U/L (12-37); Bilirubin, Total 0.4 mg/dL (0.1-1.0); Blood Urea Nitrogen 51 mg/dL (8-24); Bun/Creatinine Ratio 11.2 (12.0-20.0); CO2, Blood 16 mmol/L (21-32); Calcium, Blood 8.6 mg/dL (8.5-10.1); Chloride, Blood 111 mmol/L (98-108); Creatinine, Blood 4.57 mg/dL (0.40-1.00); Globulin, Blood 4.5 g/dL (2.2-4.0); Glomerular Filtration Rate 10 (60-); Glucose, Blood 221 mg/dL (70-99); Phosphorus, Blood 4.9 mg/dL (2.5-4.9); Potassium, Blood 4.5 mmol/L (3.5-5.5); Sodium, Blood 138 mmol/L (136-145); Total Protein, Blood 7.2 g/dL (6.4-8.2)
--- NOTE | 2019-02-16 06:15 | NUR ---
SHIFT SUMMARY PATIENT IS ALERT AND ORIENTED. PATIENT COMPLAINED OF NAUSEA AND CHILLS. PATIENTS AT BEDSIDE, HE CARES FOR HER AT HOME AND GIVES HER MEDS. 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 MEDICATED FOR NAUSEA AND FEVER. PATIENT GETTING IV FLUIDS, THE IV PUMP WAS CONTINUALLY BEEPING. TRIED USING ARM BOARD AND REMINDING PATIENT TO KEEP HER ARM STRAIGHT. NEITHER PATIENT OR WERE GETTING ANY SLEEP SO WE OFFERED TO PUT AN IV IN ANOTHER LOCATION. DEBBIE PLACED A NEW IV IN FOREARM. PATIENT GOT UP TO [facility] AND [place]IN[place]. PATIENT STARTED TO FEEL FEVERISH AGAIN AROUND 0400. PATIENT HAD THE HEATER TURNED UP VERY HIGH IN ROOM AND HAD 4 BLANKETS ON. EDUCATED PT AND FAMILY THAT A BIG PART OF GETTING THIS FEVER DOWN WAS TO TAKE THE BLANKETS OFF AND TURN THE HEAT DOWN, POSSIBLY EVEN HAVE A COLD WASH CLOTH. PATIENT AND UNDERSTAND. ABOUT AN HOUR LATER CHECKED ON THE PATIENT AND SHE STATES SHE IS FEELING BETTER, NO CHILLS NOTED, NOT WARM TO THE TOUCH. NO OTHER CHANGES NOTED DURING SHIFT. VITALS STABLE.
--- NOTE | 2019-02-16 18:52 | NUR ---
PATIENT IS ALERT. ORIENTED TO FAMILY, SELF AND PLACE. SOME CONFUSION BUT REDIRECTABLE. PATIENT BECAME INCREASINGLY WEAK FOLLOWING DIALYSIS. PATIENT'S STATES THIS IS NORMAL. USED THE BEDPAN TO TOILET THE PATIENT. NO NEW CONCERNS. WILL CONTINUE TO MONITOR.
--- NOTE | 2019-02-17 04:43 | NUR ---
SHIFT SUMMARY: 73 Y/O FEMALE RESTED COMFORTABLY ALL SHIFT WITH SPOUSE SPENDING NIGHT AT SIDE. 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 TELEMETRY REFLECTS NSR. PT HAS POSITIVE BLOOD CULTURE WITH CLUSTERS (CALLED TO PHARMACIST AND ALIX TUCKER CHARGE NURSE); PT CURRENTLY TAKING ROCEPHIN AND IS COVERED BY CURRENT ANTIBIOTIC. PT DENIES PAIN OR NAUSEA; BED LOW POSITION, CALL LIGHT AT SIDE.
[2019-02-17 04:46] LABS: Hematocrit 28.8 % (33.0-51.0); Hemoglobin 9.5 g/dL (11.5-16.0)
[2019-02-17 05:04] LABS: Albumin, Blood 2.1 g/dL (3.4-5.0); Anion Gap 7 mmol/L (6-16); Blood Urea Nitrogen 32 mg/dL (8-24); Bun/Creatinine Ratio 8.7 (12.0-20.0); CO2, Blood 28 mmol/L (21-32); Calcium, Blood 8.4 mg/dL (8.5-10.1); Chloride, Blood 105 mmol/L (98-108); Creatinine, Blood 3.67 mg/dL (0.40-1.00); Glomerular Filtration Rate 13 (60-); Glucose, Blood 134 mg/dL (70-99); Magnesium, Blood 2.1 mg/dL (1.6-2.4); Phosphorus, Blood 3.8 mg/dL (2.5-4.9); Potassium, Blood 3.3 mmol/L (3.5-5.5); Sodium, Blood 140 mmol/L (136-145)
[2019-02-17] MEDS ORDERED: AMOCLA500 PO (12:05)
--- NOTE | 2019-02-17 13:30 | NUR ---
DISCHARGE INSTRUCTIONS COMPLETED AND DISCUSSED WITH PTS EXPRESSING UNDERSTANDING. SCRIPTS FAXED TO JENY DELANEY WITH [facility] [facility] IN TO SEE PT PRIOR TO DISCHARGE. TO [facility] VIA W/C.
[2019-02-17 14:10] LABS: Stool Occult Blood Guaiac 1 Neg (Neg)
--- NOTE | 2019-02-17 14:35 | NUR ---
POSITIVE BLOOD CULTURE: RECEIVED CALL FROM LAB AT 1410 THAT PT HAD POSITIVE BLOOD CULTURE GROWING GRAM POSITIVE COCCI IN CLUSTERS. PT HAD ALREADY DISCHARGED HOME. CALLED DR. LEON AT 1415 TO INFORM HIM OF THE ABOVE INFORMATION. PT DID GO HOME WITH A NEW PRESCRIPTION FOR ANTIBIOTICS. DR. LEON INSTRUCTED THIS RN TO FOLLOW UP WITH THE PT'S PCP (DR. GIOVANA RUIZ) REGARDING A REPEAT BLOOD CULTURE X2 TODAY. THIS RN SPOKE WITH DR. RUIZ' OVEN STRIPPER GERHARD AT 1420. GERHARD STATED SHE WILL TALK WITH DR. RUIZ AND CALL THE PT ABOUT THE ABOVE INFORMATION.
--- NOTE | 2019-02-17 14:43 | NUR ---
Pt. is doing much better and may go home today or [place] praayed for pt.
== END 2019-02-17 13:27 | disposition home or self-care (01) ==
LOC: ER 18:13 → MEDS 18:14 → ENPENDDIS 02-17 10:17 → MEDS 02-17 13:27
PROVIDERS: Emergency Medicine; Internal Medicine; Internal Medicine Nephrology; ADMIT Internal Medicine
DX: R53.1 Weakness (principal); E13.22 Other specified diabetes mellitus with diabetic chronic kidney disease; I13.2 Hypertensive heart and chronic kidney disease with heart failure and with stage 5 chronic kidney disease, or end stage renal disease; I50.32 Chronic diastolic (congestive) heart failure; N18.6 End stage renal disease; J47.9 Bronchiectasis, uncomplicated; I73.9 Peripheral vascular disease, unspecified; D63.1 Anemia in chronic kidney disease; K21.9 Gastro-esophageal reflux disease without esophagitis; E78.5 Hyperlipidemia, unspecified; E13.319 Other specified diabetes mellitus with unspecified diabetic retinopathy without macular edema; E13.21 Other specified diabetes mellitus with diabetic nephropathy; E86.0 Dehydration; Z79.82 Long term (current) use of aspirin; Z99.2 Dependence on renal dialysis; Z91.15 Patient's noncompliance with renal dialysis; Z79.899 Other long term (current) drug therapy; Z79.4 Long term (current) use of insulin; Z88.5 Allergy status to narcotic agent; Z88.8 Allergy status to other drugs, medicaments and biological substances
CPT/HCPCS: 36415; 71046; 71250; 80053; 80069; 81001; 82272; 82947; 83605; 83735; 84100; 85014; 85018; 85025; 85027; 87040; 87077; 87086; 87186; 93005; 93010; 96361; 96365; 96372; 96375; 99285-25; A9270; G0257; G0378; J0696; J0881; J1650; J2405; J7030; J7050

== ENCOUNTER 2019-02-17 15:20 | Emergency (ER) | payer BC ==
[~2019-02-17] VITALS: Ht 170.2 cm; Wt 66.7 kg
[~2019-02-17 15:20] MED LIST changes: +AMOCLA500 PO; +Calcium Acetat667 MG PO; +INSULANPEN PO; +Lovastatin10 MG PO; +MERIBIN5 MG PO; +NIFE30ER PO
[2019-02-17 17:17] LABS: BASOPHILS ABSOLUTE AUTO 0.02 K/mm3 (0.00-0.23); BASOPHILS PERCENT AUTO 0 % (0-2); EOSINOPHILS ABSOLUTE AUTO 0.06 K/mm3 (0.00-0.68); EOSINOPHILS PERCENT AUTO 1 % (0-6); Hematocrit 31.7 % (33.0-51.0); Hemoglobin 10.6 g/dL (11.5-16.0); IMMATURE GRAN ABSOLUTE AUTO 0.06 K/mm3 (0.00-0.10); IMMATURE GRAN PERCENT AUTO 1 % (0-1); LYMPHOCYTES ABSOLUTE AUTO 3.04 K/mm3 (0.84-5.20); LYMPHOCYTES PERCENT AUTO 28 % (21-46); MONOCYTES ABSOLUTE AUTO 0.87 K/mm3 (0.16-1.47); MONOCYTES PERCENT AUTO 8 % (4-13); Mean Corpuscular HGB 33.3 pg (26.0-34.0); Mean Corpuscular HGB Conc 33.4 g/dL (31.5-36.5); Mean Corpuscular Volume 100 fL (80-100); Mean Platelet Volume 11.1 fL (9.1-12.4); NEUTROPHILS ABSOLUTE AUTO 6.96 K/mm3 (1.96-9.15); NEUTROPHILS PERCENT AUTO 63 % (41-73); Platelet Count 205 K/mm3 (150-400); RDW Coefficient Variation 12.5 % (11.7-14.2); RDW Standard Deviation 45.5 fL (35.1-46.3); Red Blood Cell Count 3.18 M/mm3 (3.80-5.20); White Blood Cell Count 11.01 K/mm3 (4.00-11.30)
[2019-02-17 17:36] LABS: Albumin, Blood 2.7 g/dL (3.4-5.0); Albumin/Globulin Ratio 0.6 (0.8-1.8); Bilirubin, Total 0.3 mg/dL (0.1-1.0); Bun/Creatinine Ratio 8.2 (12.0-20.0); Calcium, Blood 9.1 mg/dL (8.5-10.1); Creatinine, Blood 4.17 mg/dL (0.40-1.00); Globulin, Blood 4.5 g/dL (2.2-4.0); Potassium, Blood 3.6 mmol/L (3.5-5.5); Total Protein, Blood 7.2 g/dL (6.4-8.2)
== END 2019-02-17 20:03 | disposition home or self-care (01) ==
LOC: ER 15:20
PROVIDERS: Physician Assistant
DX: R79.89 Other specified abnormal findings of blood chemistry (principal); Z88.8 Allergy status to other drugs, medicaments and biological substances; Z88.5 Allergy status to narcotic agent; Z79.899 Other long term (current) drug therapy; Z79.4 Long term (current) use of insulin; Z79.82 Long term (current) use of aspirin; E11.9 Type 2 diabetes mellitus without complications; I10 Essential (primary) hypertension; D64.9 Anemia, unspecified; K21.9 Gastro-esophageal reflux disease without esophagitis; I25.2 Old myocardial infarction
CPT/HCPCS: 36415; 80053; 83605; 84145; 85025; 87040; 99283

== ENCOUNTER 2019-04-07 17:13 | Inpatient (IN) | payer BC, MEDICARE ==
[~2019-04-07] VITALS: Ht 157.5 cm; Wt 65.0 kg
[2019-04-07 17:54] LABS: BASOPHILS ABSOLUTE AUTO 0.03 K/mm3 (0.00-0.23); BASOPHILS PERCENT AUTO 0 % (0-2); EOSINOPHILS ABSOLUTE AUTO 0.11 K/mm3 (0.00-0.68); EOSINOPHILS PERCENT AUTO 1 % (0-6); Hematocrit 34.8 % (33.0-51.0); Hemoglobin 11.5 g/dL (11.5-16.0); IMMATURE GRAN ABSOLUTE AUTO 0.03 K/mm3 (0.00-0.10); IMMATURE GRAN PERCENT AUTO 0 % (0-1); LYMPHOCYTES ABSOLUTE AUTO 3.83 K/mm3 (0.84-5.20); LYMPHOCYTES PERCENT AUTO 44 % (21-46); MONOCYTES ABSOLUTE AUTO 0.63 K/mm3 (0.16-1.47); MONOCYTES PERCENT AUTO 7 % (4-13); Mean Corpuscular HGB 33.1 pg (26.0-34.0); Mean Corpuscular Volume 100 fL (80-100); Mean Platelet Volume 10.8 fL (9.1-12.4); NEUTROPHILS ABSOLUTE AUTO 4.14 K/mm3 (1.96-9.15); NEUTROPHILS PERCENT AUTO 47 % (41-73); Platelet Count 266 K/mm3 (150-400); RDW Coefficient Variation 13.1 % (11.7-14.2); RDW Standard Deviation 48.4 fL (35.1-46.3); Red Blood Cell Count 3.47 M/mm3 (3.80-5.20); White Blood Cell Count 8.77 K/mm3 (4.00-11.30)
[2019-04-07 18:07] LABS: International Normalized Ratio 0.92; Prothrombin Time Results 9.8 Sec (9.7-11.5)
[2019-04-07 18:11] LABS: Albumin, Blood 2.9 g/dL (3.4-5.0); Albumin/Globulin Ratio 0.6 (0.8-1.8); Bilirubin, Total 0.2 mg/dL (0.1-1.0); Bun/Creatinine Ratio 7.2 (12.0-20.0); Calcium, Blood 8.9 mg/dL (8.5-10.1); Creatinine, Blood 5.4 mg/dL (0.40-1.00); Globulin, Blood 4.6 g/dL (2.2-4.0); Potassium, Blood 4.3 mmol/L (3.5-5.5); Total Protein, Blood 7.5 g/dL (6.4-8.2)
[2019-04-07] MEDS ORDERED: Neurontin 100100 MG PO (18:30)
[2019-04-07] MEDS ORDERED: Coreg12.5 MG PO (18:30)
[2019-04-07] MEDS ORDERED: OMEP20ER PO (18:32)
[2019-04-07] MEDS ORDERED: LOSARTAN POTAS100 MG PO (18:33)
[2019-04-07 18:49] LABS: Source, Urine Clean Catch
[2019-04-07 18:51] LABS: Magnesium, Blood 2.1 mg/dL (1.6-2.4); Phosphorus, Blood 6.1 mg/dL (2.5-4.9)
[2019-04-07 18:55] LABS: Bilirubin, Urine Neg (Neg); Blood, Urine 1+ (Neg); Glucose Qualitative, Urine 4+ (Neg); Ketones, Urine Neg (Neg); Leukocyte Esterase, Urine Neg (Neg); Nitrite, Urine Neg (Neg); Protein, Urine 4+ (Neg); Urobilinogen, Urine NORM (Normal)
[2019-04-07 19:06] LABS: Appearance, Urine Clear (Clear); Color, Urine Yellow (P-Yellow)
[2019-04-07 19:07] LABS: Bacteria Few /hpf; Squamous Epithelial Cells Few /hpf (Few)
[2019-04-07] MEDS ORDERED: BASAGLAR K100 UNIT/1 SC (19:47)
--- NOTE | 2019-04-07 22:28 | NUR ---
UPDATE SPOKE WITH NURSE PRACTIONER YVETTE ABOUT WHICH OF THE ORERED MEDICATIONS SHOULD BE GIVEN TONIGHT DUE TO NOT WANTING TO DECREASE PATIENT'S BLOOD PRESSURE SIGNIFCANTLY AT THIST IME. CRAWFORD AWARE OF ALL MEDICATIONS TO BE GIVEN TONIGHT AND STATED THAT ALL OF THEM SHOULD BE GIVEN EXCEPT FOR THE COZAAR.
[2019-04-08 04:15] LABS: Hematocrit 33.2 % (33.0-51.0); Hemoglobin 10.7 g/dL (11.5-16.0); Mean Corpuscular HGB 33.4 pg (26.0-34.0); Mean Corpuscular HGB Conc 32.2 g/dL (31.5-36.5); Mean Platelet Volume 10.9 fL (9.1-12.4); Platelet Count 242 K/mm3 (150-400); RDW Coefficient Variation 13.1 % (11.7-14.2); RDW Standard Deviation 50.1 fL (35.1-46.3); White Blood Cell Count 8.54 K/mm3 (4.00-11.30)
[2019-04-08 04:19] LABS: Mean Corpuscular Volume 104 fL (80-100)
[2019-04-08 04:38] LABS: Albumin, Blood 2.5 g/dL (3.4-5.0); Albumin/Globulin Ratio 0.6 (0.8-1.8); Bilirubin, Total 0.2 mg/dL (0.1-1.0); Calcium, Blood 8.4 mg/dL (8.5-10.1); Creatinine, Blood 5.49 mg/dL (0.40-1.00); Globulin, Blood 4.2 g/dL (2.2-4.0); Potassium, Blood 3.8 mmol/L (3.5-5.5); Total Protein, Blood 6.7 g/dL (6.4-8.2)
--- NOTE | 2019-04-08 07:48 | NUR ---
ADMIT NOTE/SHIFT SUMMARY PATIENT ADMITTED TO THE UNIT FROM THE ER. PATIENT TRANSFERED FROM THE RNEY TO THE BED VIA SLIDER SHEET. PATIENT HAS A LEFT SIDED FACIAL DROOP BUT PATIENT'S SPEECH REMAINS CLEAR. PATIENT HAS SIGNIFICANT WEAKNESS TO LEFT ARM AND LEFT LEG BUT DOES HAVE SLIGHT MOVEMENT TO BOTH EXTREMITIES. PATIENT SUCCESSFULLY PASSED BEDSIDE SWALLOW EVAL DONE WITH CHARGE NURSE MARGO PANIAGUA. PATIENT ALSO REPORTS THAT SENSATION IS STRONGER ON THE RIGHT SIDE OF HER BODY. PATIENT LEGALLY BLIND. PATIENT'S VITAL SIGNS CHARTED AND TREATED PER EMAR. PATIENT'S STAYED THE NIGHT AT THE BEDSIDE. PATIENT STRAIGHT CATHED DUE TO RETENTION X 1. PATIENT APPEARED TO SLEEP WELL FOR SEVERAL HOURS LAST NIGHT. REPORT GIVEN TO ONCOMING RN.
--- NOTE | 2019-04-08 14:23 | NUR ---
Echocardiogram completed.
--- NOTE | 2019-04-08 17:46 | NUR ---
SHIFT SUMMARY PT ALERT AND ORIENTED. VS STABLE. PT COMPLAINED OF PAIN IN HER LEFT SIDE THIS SHIFT THAT WAS RELIEVED WITH MEDICATION ADMINISTRATION. PT HAS LEFT SIDED FACIAL DROOP. PT HAS LEFT SIDED WEAKNESS, BUT HAS GROSS MOVEMENT TO LEFT SIDE. SPEECH REMAINS CLEAR. PT TOLERATING PO INTAKE. GARCIA CATHETER PLACED THIS SHIFT DUE TO RETENTION. PT ABLE TO USE BED CHOI THIS SHIFT AND HAD 2 BM. WILL CONTINUE TO MONITOR AND REPORT TO ONCOMING RN. CALL LIGHT IN REACH.
--- NOTE | 2019-04-08 22:22 | NUR ---
1929: ASSUMED CARE OFPATIENT. PT CO CRAMPY ABD DISCOMFORT. PUT ON BEDPAN AND SHE HAD A SMALL BM SOFT NONFORMED. PT FELT BETTER AFTER THIS AND SD THIS IS NORMAL FOR HER EVER SINCE SHE HAS BEEN ON DIALYSIS. 2029: PT HIGH BP 200/100S,SHE WAS GIVEN HYDRALIZINE IV . 2199: PT COOF VAUSEA AND RECVD ZOFRAN IV. HELD ORAL MEDS. 2229: PT VOMITING. CRAMPY ABD PAIN. PUTON BEDPAN. BOELR SOUND HYPER ACTIVE.BP BACK UP TO 200/100S; CALLED CONTRACT LEAD SONDRA GREEN. RECVD RX FOR PHENERTGAN PER EMAR
[2019-04-09 04:45] LABS: Albumin, Blood 2.7 g/dL (3.4-5.0); Anion Gap 11 mmol/L (6-16); Blood Urea Nitrogen 49 mg/dL (8-24); Bun/Creatinine Ratio 8.9 (12.0-20.0); CO2, Blood 23 mmol/L (21-32); Chloride, Blood 107 mmol/L (98-108); Creatinine, Blood 5.49 mg/dL (0.40-1.00); Glomerular Filtration Rate 8 (60-); Glucose, Blood 250 mg/dL (70-99); Phosphorus, Blood 5.7 mg/dL (2.5-4.9); Sodium, Blood 141 mmol/L (136-145)
--- NOTE | 2019-04-09 07:13 | NUR ---
EOS: PATIENT HAD LITTLE SLEEP DURING THE NIGHT. SHE HAD HIGH BPS, 200's/150's AT ONE POINT. SHE HAD IRRITABLE BOWELS, NORMAL FOR HER SINCE SHE STARTED DIALYSIS SHE STATED. [facility] AND RECVD ORDERS AND GAVE MEDS PER EMAR. THIS MORNING HER SBP WAS 187. NO MORE CRAMPY PAIN, SHE WAS NO LONGER IN DISTRESS BUT ANGRY. ALTERED MENTALLY PER . SHE WANTS TO GET UP. SHE WANTS TO WALK INTO THE BATHROOM. RE-ORIENTING HER FREQUENTLY AND EDUCATING HER TO THE RISK OF FALLING, THE NEED FOR PHYSICAL THERAPY TO EVALUATE HER AND WORK WITH HER TO REGAIN HER STRENGTH ETC. PATIENT HAD 2+ LITERS OUT DURING THE SHIFT. IVF WERE STOPPED DUE TO HIGH PRESSURES. PASSED REPORT TO DAY RN
--- NOTE | 2019-04-09 08:00 | NUR ---
ASSUMED CARE PT ALERT AND ORIENTED. VS STABLE. O2 SATS REMAIN ABOVE 90% ON RA. BP STABLE. HR SINUS TO SINUS TACH. PT COMPLAINS OF SOME CRAMPING IN HER STOMACH, BUT STATES THAT IT IS NORMAL FOR HER ON DIALYSIS DAYS. PT TO HAVE DIALYSIS TODAY. PT MOVING LEFT SIDE BETTER THIS SHIFT THAN YESTERDAY. ORDERS FOR PT TO TRANSFER TO MEDICAL FLOOR. WILL CONTINUE TO MONITOR.
--- NOTE | 2019-04-09 14:36 | NUR ---
REPORT CALLED TO KIMBRELEY THOMSON ON MEDICAL FLOOR.
--- NOTE | 2019-04-09 18:22 | NUR ---
SHIFT SUMMARY CHUYITA ARRIVED FROM PCU AROUND 3PM. VSS, DENIES PAIN. FAMILY PRESENT AT BEDSIDE. L SIDE WEAKNESS, BUT CLEAR SPEECH AND ABLE TO SWALLOW WELL. ORIENTED FOR ME, BUT FAMILY SAYS SHE HAD A SPELL SINCE ARRIVAL OF CONFUSION, RESOLVED NOW. LEGALLY BLIND. JOSE C/D/I. TELE SHOWING NSR AT 91. TOOK MEDS PRESCRIBED. CALL LIGHT IN REACH, [facility]
--- NOTE | 2019-04-10 04:59 | NUR ---
SHIFT SUMMARY NO ACUTE CHANGES OVERNIGHT. PT HERE FOR CVA. SHE HAS RESTED MOST OF THE NIGHT, PT REMAINS WEAK, BUT IS ABLE TO TURN MINIMALLY FOR ME TO LISTEN TO HER LUNGS. PT BG IS STABLE WITH MIDNIGHT CHECK PER PT REQUEST, WHO STATES HER BG DROPS SINCE SHE HAS STARTED DIALYSIS. JACOB CRACKS AND PUDDING GIVEN TO KEEP BG STABLE AT MIDNIGHT TO KEEP HER SUGARS LEVEL T/O THE DURATION OF THE NIGHT. PT DENIES PAIN OR NEEDS T/O SHIFT. AT BEDSIDE. GARCIA PATENT AND DRAINING. TELE IN PLACE. WILL CONTINUE TO MONITOR AND REPORT TO ONCOMING RN.
[2019-04-10 05:16] LABS: BASOPHILS ABSOLUTE AUTO 0.02 K/mm3 (0.00-0.23); BASOPHILS PERCENT AUTO 0 % (0-2); EOSINOPHILS ABSOLUTE AUTO 0.13 K/mm3 (0.00-0.68); EOSINOPHILS PERCENT AUTO 1 % (0-6); Hematocrit 32.8 % (33.0-51.0); Hemoglobin 10.5 g/dL (11.5-16.0); IMMATURE GRAN ABSOLUTE AUTO 0.03 K/mm3 (0.00-0.10); IMMATURE GRAN PERCENT AUTO 0 % (0-1); LYMPHOCYTES ABSOLUTE AUTO 4.42 K/mm3 (0.84-5.20); LYMPHOCYTES PERCENT AUTO 46 % (21-46); MONOCYTES PERCENT AUTO 9 % (4-13); Mean Corpuscular Volume 103 fL (80-100); Mean Platelet Volume 10.6 fL (9.1-12.4); NEUTROPHILS ABSOLUTE AUTO 4.21 K/mm3 (1.96-9.15); NEUTROPHILS PERCENT AUTO 43 % (41-73); Platelet Count 212 K/mm3 (150-400); RDW Coefficient Variation 13.2 % (11.7-14.2); RDW Standard Deviation 50.8 fL (35.1-46.3); Red Blood Cell Count 3.18 M/mm3 (3.80-5.20); White Blood Cell Count 9.71 K/mm3 (4.00-11.30)
[2019-04-10 05:56] LABS: Albumin, Blood 2.3 g/dL (3.4-5.0); Anion Gap 8 mmol/L (6-16); Blood Urea Nitrogen 33 mg/dL (8-24); Bun/Creatinine Ratio 7.5 (12.0-20.0); CO2, Blood 28 mmol/L (21-32); Calcium, Blood 8.4 mg/dL (8.5-10.1); Chloride, Blood 108 mmol/L (98-108); Creatinine, Blood 4.39 mg/dL (0.40-1.00); Glomerular Filtration Rate 10 (60-); Glucose, Blood 123 mg/dL (70-99); Phosphorus, Blood 4.7 mg/dL (2.5-4.9); Potassium, Blood 3.5 mmol/L (3.5-5.5); Sodium, Blood 144 mmol/L (136-145)
--- NOTE | 2019-04-10 18:24 | NUR ---
SUMMARY- PT ALERT AND ORIENTED- NEURO PT AND FAMILY STATES BACK TO BASELINE EXCEPT INCREASED WEAKNESS IN L ARM. HAS GROSS MOTOR IN L ARM AND LEG, MILD FACIAL DROOP, SPEECH SLIGHT SLUR AND SOFT, SWALLOW INTACT. TOMMY, PT UP TO BSC WITH 2 SBA USING GAIT BELT, MAX PIVOT TX. UP TO CHAIR FOR DINNER. AT BEDSIDE MOST OF THE DAY AND DAUGHTER, INVOLVED IN PTS CARE FEEDING PATIENT MEALS. PT TEARFUL AT TIMES TODAY WHEN SHE BECAME FRUSTRATED AFTER BEING UNABLE TO HAVE A BM AND A SHAKY TRANSFRE BACK TO BED. EVENTUALLY HAD XL BM AT FIRST A FIRM PLUG FOLLOWED BY LOOSE RAMIREZ. STATES STOMACH HURT AND SOON RESOLVED AFTER BM. TOLERATING FOOD AND FLUIDS. IN GOOD SPIRITS THIS PM.
--- NOTE | 2019-04-11 04:59 | NUR ---
SHIFT SUMMARY PT STRENGTH HAS IMPROVED SIGNIFICANTLY ON HER LEFT SIDE. PT IS ABLE TO SLIGHTLY LIFT HER LEFT ARM OFF OF THE BED, LIGHTLY SQUEEZE MY HAND, AND LIFT HER LEFT LEG. PT WAS UNABLE TO DO THESE THINGS FOR ME THURSDAY. PT STATES THAT THIS IS A SIGNIFICANT IMPROVEMENT. PT IS IN GOOD SPIRTS AND LAUGHS AND TALKS WITH STAFF. MEDICATED X1 FOR RIGHT KNEE PAIN. VITALS STABLE. BG 276. PT ON MEDIUM SS FOR A BG OF 276, 11 UNITS OF INSULIN IS REQUIRED. HOWEVER, PT REQUESTED THAT I ONLY GIVE HER 7 IN FEAR THAT HER BG WOULD DROP TOO LOW OVERNIGHT. HE STATES "I ONLY GIVE HER 3 UNITS AT HOME" 7 UNITS GIVEN PER PT SPOUSE REQUEST AND DID A SPOT CHECK AT MIDNIGHT PER REQUEST. PLAN FOR TODAY IS DC REHAB. THERE HAVE BEEN NO ACUTE CHANGES OVERNIGHT. WILL CONTINUE TO MONITOR AND REPORT TO ONCOMING RN.
[2019-04-11 05:33] LABS: BASOPHILS ABSOLUTE AUTO 0.02 K/mm3 (0.00-0.23); BASOPHILS PERCENT AUTO 0 % (0-2); EOSINOPHILS ABSOLUTE AUTO 0.25 K/mm3 (0.00-0.68); EOSINOPHILS PERCENT AUTO 3 % (0-6); Hematocrit 30.3 % (33.0-51.0); Hemoglobin 9.8 g/dL (11.5-16.0); IMMATURE GRAN ABSOLUTE AUTO 0.04 K/mm3 (0.00-0.10); IMMATURE GRAN PERCENT AUTO 0 % (0-1); LYMPHOCYTES ABSOLUTE AUTO 4.16 K/mm3 (0.84-5.20); LYMPHOCYTES PERCENT AUTO 41 % (21-46); MONOCYTES ABSOLUTE AUTO 0.85 K/mm3 (0.16-1.47); MONOCYTES PERCENT AUTO 8 % (4-13); Mean Corpuscular HGB 33.4 pg (26.0-34.0); Mean Corpuscular HGB Conc 32.3 g/dL (31.5-36.5); Mean Corpuscular Volume 103 fL (80-100); Mean Platelet Volume 11.1 fL (9.1-12.4); NEUTROPHILS ABSOLUTE AUTO 4.84 K/mm3 (1.96-9.15); NEUTROPHILS PERCENT AUTO 48 % (41-73); Platelet Count 198 K/mm3 (150-400); RDW Coefficient Variation 12.8 % (11.7-14.2); RDW Standard Deviation 48.3 fL (35.1-46.3); Red Blood Cell Count 2.93 M/mm3 (3.80-5.20); White Blood Cell Count 10.16 K/mm3 (4.00-11.30)
[2019-04-11 05:58] LABS: Albumin, Blood 2.2 g/dL (3.4-5.0); Anion Gap 10 mmol/L (6-16); Blood Urea Nitrogen 49 mg/dL (8-24); Bun/Creatinine Ratio 9.7 (12.0-20.0); CO2, Blood 24 mmol/L (21-32); Calcium, Blood 8.4 mg/dL (8.5-10.1); Chloride, Blood 106 mmol/L (98-108); Creatinine, Blood 5.06 mg/dL (0.40-1.00); Glomerular Filtration Rate 9 (60-); Glucose, Blood 256 mg/dL (70-99); Magnesium, Blood 1.9 mg/dL (1.6-2.4); Phosphorus, Blood 6.1 mg/dL (2.5-4.9); Sodium, Blood 140 mmol/L (136-145)
--- NOTE | 2019-04-11 07:17 | NUR ---
ASSUMED CARE OF PT- BEDSIDE REPORT COMPLETED WITH NIGHT ALIX SAMANIEGO. PER REPORT PT ADMITTED FOR CVA WITH A Hx OF CVA. PT HAS A GARCIA THAT WAS PLACED FOR RETENTION. PT IS A DIALYSIS PT DURING BEDSIDE REPORT 925ML OF CLEAR YELLOW URINE WAS DRAINED FROM THE GARCIA. SPOUSE PRESENT AT BEDSIDE.
--- NOTE | 2019-04-11 07:34 | NUR ---
LAST NIGHT PER REPORT- PT BG WAS IN THE 270'S PT SPOUSE WANTS PT TO BE REDUCED TO LOW SS, NIGHT RN ADMINISTERED 7 UNITS AT THE REQUEST OF THE PT; BG WENT DOWN TO 215 PER REPORT. THIS MORNING BG 327. WILL DISCUSS THE NEED FOR THE HIGHER SS WITH THE PT AND SPOUSE AT THIS TIME IN THE PT HEALING PROCESS.
--- NOTE | 2019-04-11 13:39 | NUR ---
CALLED DR LEON- CHECKED TO SEE IF BLADDER TRAINING CAN BE DONE AND GARCIA DC'D. PLAN IS TO DC PT TO FACILITY LATER TODAY WITH THE GARCIA IN PLACE.
[2019-04-11] MEDS ORDERED: Calcium Acetat667 MG PO (15:51)
--- NOTE | 2019-04-11 15:52 | NUR ---
PT SPOUSE BROUGHT IN A PICTURE OF THE PT PHOSPHATE BINDER THAT IS NOT CURRENTLY ON THE EMAR PT TAKES PHOSLO 667 TWO TABS TID WITH MEALS AT HOME. CALLED DR VICK AND RECIEVED A VERBAL ORDER FOR PHOSLO 1 TAB TID WITH MEALS AT THIS TIME.
--- NOTE | 2019-04-11 17:25 | NUR ---
DISCHARGE NOTE- PT DISCHARGED TO [facility] BP STABLE AT THE TIME OF DISCHARGE PT TRANSFERED 1PA TO THE WHEEL CHAIR WITH LOTS OF CUEING. PT ALERT AND ORIENTED, HAS A GARCIA IN FOR RETENTION, LEAVE IN AT THE TIME OF DISCHARGE PER DR LEON. PT SPOUSE PRESENT AT THE TIME OF DISCHARGE NO FURTHER QUESTIONS AT THIS TIME. SPOUSE CALLED AND CONFIRMED PT 1600 APPOINTMENTS FOR DIALYSIS TOMORROW. PT USUALLY GOES TO DIALYSIS THURSDAY AND THURSDAY. PER THE PT SPOUSE HE TAKES HER ON THURSDAY AND HER DAUGHTER TAKES HER ON THURSDAY. WILL PASS ON IN REPORT TO [facility].
--- NOTE | 2019-04-11 17:47 | NUR ---
GAVE TELEPHONE REPORT TO RN AT [facility] AND GAVE CONTACT INFO IN THE EVENT THAT QUESTIONS SHOULD ARRISE. NO FURTHER QUESTIONS AT THIS TIME.
== END 2019-04-11 17:01 | DRG 64 ==
LOC: ER 17:13 → PCU 20:38 → MEDS 04-09 15:11
PROVIDERS: Emergency Medicine; Internal Medicine Nephrology; Physician Assistant; ADMIT Internal Medicine
DX: I63.9 Cerebral infarction, unspecified (principal); N18.6 End stage renal disease; N25.81 Secondary hyperparathyroidism of renal origin; I50.32 Chronic diastolic (congestive) heart failure; I13.2 Hypertensive heart and chronic kidney disease with heart failure and with stage 5 chronic kidney disease, or end stage renal disease; Z79.4 Long term (current) use of insulin; Z79.82 Long term (current) use of aspirin; R29.818 Other symptoms and signs involving the nervous system; K21.9 Gastro-esophageal reflux disease without esophagitis; Z99.2 Dependence on renal dialysis; H54.8 Legal blindness, as defined in USA; R29.810 Facial weakness; Z79.02 Long term (current) use of antithrombotics/antiplatelets; E88.09 Other disorders of plasma-protein metabolism, not elsewhere classified; F41.9 Anxiety disorder, unspecified; E10.22 Type 1 diabetes mellitus with diabetic chronic kidney disease; E10.51 Type 1 diabetes mellitus with diabetic peripheral angiopathy without gangrene; E10.319 Type 1 diabetes mellitus with unspecified diabetic retinopathy without macular edema
CPT/HCPCS: 36415; 51701; 70450; 70551; 80053; 80069; 81001; 82947; 83735; 84100; 85014; 85018; 85025; 85027; 85610; 93005; 93010; 93306; 93880; 96374; 97110; 97162; 97166; 97530; 97535; 99285-25; A9270; J0360; J0881; J1644; J2405; J2550; J7030

== ENCOUNTER 2019-10-08 17:43 | Emergency (ER) | payer BC, MEDICARE ==
[~2019-10-08] VITALS: Ht 170.2 cm; Wt 63.5 kg
[~2019-10-08 17:43] MED LIST changes: +BASAGLAR K100 UNIT/1 SC; +Coreg12.5 MG PO; +LOSARTAN POTAS100 MG PO; +Neurontin 100100 MG PO; +OMEP20ER PO
[2019-10-08 18:30] LABS: BASOPHILS ABSOLUTE AUTO 0.04 K/mm3 (0.00-0.23); BASOPHILS PERCENT AUTO 0 % (0-2); EOSINOPHILS ABSOLUTE AUTO 0.17 K/mm3 (0.00-0.68); EOSINOPHILS PERCENT AUTO 2 % (0-6); Hematocrit 34.7 % (33.0-51.0); Hemoglobin 11.9 g/dL (11.5-16.0); IMMATURE GRAN ABSOLUTE AUTO 0.08 K/mm3 (0.00-0.10); IMMATURE GRAN PERCENT AUTO 1 % (0-1); LYMPHOCYTES ABSOLUTE AUTO 3.95 K/mm3 (0.84-5.20); LYMPHOCYTES PERCENT AUTO 34 % (21-46); MONOCYTES ABSOLUTE AUTO 0.45 K/mm3 (0.16-1.47); MONOCYTES PERCENT AUTO 4 % (4-13); Mean Corpuscular HGB Conc 34.3 g/dL (31.5-36.5); Mean Corpuscular Volume 96 fL (80-100); Mean Platelet Volume 10.3 fL (9.1-12.4); NEUTROPHILS ABSOLUTE AUTO 6.87 K/mm3 (1.96-9.15); NEUTROPHILS PERCENT AUTO 59 % (41-73); Platelet Count 353 K/mm3 (150-400); RDW Coefficient Variation 12.4 % (11.7-14.2); RDW Standard Deviation 44.2 fL (35.1-46.3); Red Blood Cell Count 3.61 M/mm3 (3.80-5.20); White Blood Cell Count 11.56 K/mm3 (4.00-11.30)
[2019-10-08 18:55] LABS: Albumin, Blood 3.5 g/dL (3.4-5.0); Albumin/Globulin Ratio 0.6 (0.8-1.8); Bilirubin, Total 0.3 mg/dL (0.1-1.0); Calcium, Blood 9.3 mg/dL (8.5-10.1); Creatinine, Blood 3.89 mg/dL (0.40-1.00); Globulin, Blood 5.5 g/dL (2.2-4.0); Potassium, Blood 3.7 mmol/L (3.5-5.5)
[2019-10-08 19:38] LABS: Source, Urine Clean Catch
[2019-10-08 19:41] LABS: Bilirubin, Urine Neg (Neg); Blood, Urine 1+ (Neg); Glucose Qualitative, Urine 3+ (Neg); Ketones, Urine 1+ (Neg); Leukocyte Esterase, Urine Neg (Neg); Nitrite, Urine Neg (Neg); Protein, Urine 4+ (Neg); Specific Gravity, Urine 1.015 (1.003-1.022); Urobilinogen, Urine NORM (Normal)
[2019-10-08 19:42] LABS: Appearance, Urine Hazy (Clear); Color, Urine Yellow (P-Yellow)
[2019-10-08 19:48] LABS: Amorphous Mod (0-Heavy); Bacteria Mod /hpf; Red Blood Cells, Urine 0-2 /hpf (0-2); Squamous Epithelial Cells Few /hpf (Few); White Blood Cells, Urine 0-2 /hpf (0-5)
[2019-10-08] MEDS ORDERED: CEPH500 PO (20:10)
== END 2019-10-08 20:32 | disposition home or self-care (01) ==
LOC: ER 17:43
PROVIDERS: Emergency Medicine
DX: N39.0 Urinary tract infection, site not specified (principal); I13.2 Hypertensive heart and chronic kidney disease with heart failure and with stage 5 chronic kidney disease, or end stage renal disease; E11.22 Type 2 diabetes mellitus with diabetic chronic kidney disease; I50.30 Unspecified diastolic (congestive) heart failure; N18.6 End stage renal disease; D63.1 Anemia in chronic kidney disease; E11.51 Type 2 diabetes mellitus with diabetic peripheral angiopathy without gangrene; I73.9 Peripheral vascular disease, unspecified; E11.319 Type 2 diabetes mellitus with unspecified diabetic retinopathy without macular edema; K21.9 Gastro-esophageal reflux disease without esophagitis; E78.5 Hyperlipidemia, unspecified; Z88.5 Allergy status to narcotic agent; Z79.899 Other long term (current) drug therapy; Z79.82 Long term (current) use of aspirin; Z79.4 Long term (current) use of insulin; Z99.2 Dependence on renal dialysis
CPT/HCPCS: 36415; 74176; 80053; 81001; 83690; 85025; 87086; 99284-25; A9270-GY; P9612

== ENCOUNTER 2020-05-05 13:25 | Inpatient (IN) | payer BC, MEDICARE ==
[~2020-05-05] VITALS: Ht 170.2 cm; Wt 70.8 kg
[~2020-05-05 13:25] MED LIST changes: -ASPI325 PO; -BASAGLAR K100 UNIT/1 SC; -Coreg12.5 MG PO; -Humalog100 UNIT/1 SC; +LEVOFLOXACIN250 MG PO; -LOSARTAN POTAS100 MG PO; -Lipitor20 MG PO; -MERIBIN5 MG PO; -Neurontin 100100 MG PO; -OMEP20ER PO; -Vitamin B-121000 MCG PO; -Vitamin D2000 UNIT PO
[2020-05-05 14:12] LABS: BASOPHILS ABSOLUTE AUTO 0.04 K/mm3 (0.00-0.23); BASOPHILS PERCENT AUTO 0 % (0-2); EOSINOPHILS ABSOLUTE AUTO 0.14 K/mm3 (0.00-0.68); EOSINOPHILS PERCENT AUTO 1 % (0-6); Hematocrit 29.5 % (33.0-51.0); Hemoglobin 9.6 g/dL (11.5-16.0); IMMATURE GRAN PERCENT AUTO 1 % (0-1); LYMPHOCYTES ABSOLUTE AUTO 2.87 K/mm3 (0.84-5.20); LYMPHOCYTES PERCENT AUTO 22 % (21-46); MONOCYTES ABSOLUTE AUTO 1.23 K/mm3 (0.16-1.47); MONOCYTES PERCENT AUTO 10 % (4-13); Mean Corpuscular HGB 32.9 pg (26.0-34.0); Mean Corpuscular HGB Conc 32.5 g/dL (31.5-36.5); Mean Corpuscular Volume 101 fL (80-100); Mean Platelet Volume 11.1 fL (9.1-12.4); NEUTROPHILS ABSOLUTE AUTO 8.61 K/mm3 (1.96-9.15); NEUTROPHILS PERCENT AUTO 66 % (41-73); Platelet Count 277 K/mm3 (150-400); RDW Coefficient Variation 12.5 % (11.7-14.2); RDW Standard Deviation 46.7 fL (35.1-46.3); Red Blood Cell Count 2.92 M/mm3 (3.80-5.20); White Blood Cell Count 12.99 K/mm3 (4.00-11.30)
[2020-05-05] MEDS ORDERED: VITAMIN B12 PO (14:28)
[2020-05-05 14:44] LABS: Albumin, Blood 1.8 g/dL (3.4-5.0); Albumin/Globulin Ratio 0.4 (0.8-1.8); Bilirubin, Total 0.2 mg/dL (0.1-1.0); Calcium, Blood 7.9 mg/dL (8.5-10.1); Globulin, Blood 4.2 g/dL (2.2-4.0); Potassium, Blood 3.4 mmol/L (3.5-5.5)
[2020-05-05 14:51] LABS: Troponin I 0.73 ng/mL (0.000-0.040)
[2020-05-05] MEDS ORDERED: CLON.1 PO (15:30)
[2020-05-05] MEDS ORDERED: FURO80 PO (15:31)
[2020-05-05] MEDS ORDERED: Coreg12.5 MG PO (15:32)
[2020-05-05] MEDS ORDERED: Neurontin 100100 MG PO (15:32)
[2020-05-05] MEDS ORDERED: NIFE60ER PO (15:33)
[2020-05-05] MEDS ORDERED: Calcium Acetat667 MG PO (15:33)
[2020-05-05] MEDS ORDERED: LOSARTAN POTAS100 MG PO (15:34)
[2020-05-05] MEDS ORDERED: BASAGLAR K100 UNIT/1 SC (15:35)
[2020-05-05] MEDS ORDERED: OMEP20ER PO (15:35)
[2020-05-05] MEDS ORDERED: Lipitor20 MG PO (15:35)
[2020-05-05] MEDS ORDERED: HUMALOG100 UNIT/1 SC (15:35)
[2020-05-05] MEDS ORDERED: ASPI325 PO (15:49)
[2020-05-05] MEDS ORDERED: Vitamin B-121000 MCG PO (15:49)
[2020-05-05] MEDS ORDERED: Vitamin D2000 UNIT PO (15:50)
[2020-05-05] MEDS ORDERED: MERIBIN5 MG PO (15:50)
[2020-05-05 18:25] LABS: Potassium, Blood 4.2 mmol/L (3.5-5.5)
[2020-05-06 07:45] LABS: BASOPHILS ABSOLUTE AUTO 0.04 K/mm3 (0.00-0.23); BASOPHILS PERCENT AUTO 0 % (0-2); EOSINOPHILS ABSOLUTE AUTO 0.16 K/mm3 (0.00-0.68); EOSINOPHILS PERCENT AUTO 1 % (0-6); Hematocrit 25.8 % (33.0-51.0); Hemoglobin 8.5 g/dL (11.5-16.0); IMMATURE GRAN ABSOLUTE AUTO 0.07 K/mm3 (0.00-0.10); IMMATURE GRAN PERCENT AUTO 1 % (0-1); LYMPHOCYTES PERCENT AUTO 20 % (21-46); MONOCYTES ABSOLUTE AUTO 0.89 K/mm3 (0.16-1.47); MONOCYTES PERCENT AUTO 7 % (4-13); Mean Corpuscular HGB 33.1 pg (26.0-34.0); Mean Corpuscular HGB Conc 32.9 g/dL (31.5-36.5); Mean Corpuscular Volume 100 fL (80-100); Mean Platelet Volume 10.8 fL (9.1-12.4); NEUTROPHILS ABSOLUTE AUTO 9.38 K/mm3 (1.96-9.15); NEUTROPHILS PERCENT AUTO 71 % (41-73); Platelet Count 328 K/mm3 (150-400); RDW Coefficient Variation 12.6 % (11.7-14.2); RDW Standard Deviation 46.2 fL (35.1-46.3); Red Blood Cell Count 2.57 M/mm3 (3.80-5.20); White Blood Cell Count 13.24 K/mm3 (4.00-11.30)
[2020-05-06 08:32] LABS: Anion Gap 9 mmol/L (6-16); Blood Urea Nitrogen 39 mg/dL (8-24); CO2, Blood 28 mmol/L (21-32); Calcium, Blood 9.5 mg/dL (8.5-10.1); Chloride, Blood 97 mmol/L (98-108); Creatinine, Blood 7.76 mg/dL (0.40-1.00); Glomerular Filtration Rate 5 (60-); Glucose, Blood 81 mg/dL (70-99); Magnesium, Blood 1.9 mg/dL (1.6-2.4); Phosphorus, Blood 4.2 mg/dL (2.5-4.9); Sodium, Blood 134 mmol/L (136-145)
[2020-05-06 08:38] LABS: Troponin I 0.863 ng/mL (0.000-0.040)
[2020-05-06 12:09] LABS: Vancomycin, Random 12.2 ug/mL
[2020-05-07 04:55] LABS: Hematocrit 27.3 % (33.0-51.0); Hemoglobin 8.8 g/dL (11.5-16.0)
[2020-05-07 05:16] LABS: Anion Gap 7 mmol/L (6-16); Blood Urea Nitrogen 20 mg/dL (8-24); Bun/Creatinine Ratio 4.1 (12.0-20.0); CO2, Blood 33 mmol/L (21-32); Calcium, Blood 8.5 mg/dL (8.5-10.1); Chloride, Blood 100 mmol/L (98-108); Glomerular Filtration Rate 9 (60-); Glucose, Blood 124 mg/dL (70-99); Magnesium, Blood 2.2 mg/dL (1.6-2.4); Phosphorus, Blood 3.2 mg/dL (2.5-4.9); Potassium, Blood 3.7 mmol/L (3.5-5.5); Sodium, Blood 140 mmol/L (136-145)
[2020-05-07 12:16] LABS: Source, Urine Catheter
[2020-05-07 12:19] LABS: Appearance, Urine Clear (Clear); Bilirubin, Urine Neg (Neg); Blood, Urine 1+ (Neg); Color, Urine Yellow (P-Yellow); Glucose Qualitative, Urine 3+ (Neg); Ketones, Urine Neg (Neg); Leukocyte Esterase, Urine 1+ (Neg); Nitrite, Urine Neg (Neg); Protein, Urine 3+ (Neg); Urobilinogen, Urine NORM (Normal)
[2020-05-07 12:38] LABS: Red Blood Cells, Urine 0-2 /hpf (0-2); Squamous Epithelial Cells Mod /hpf (Few)
[2020-05-07 12:39] LABS: Bacteria Few /hpf
[2020-05-07 13:30] LABS: Vancomycin, Random 34.4 ug/mL
[2020-05-08 03:45] LABS: BASOPHILS ABSOLUTE AUTO 0.02 K/mm3 (0.00-0.23); BASOPHILS PERCENT AUTO 0 % (0-2); EOSINOPHILS ABSOLUTE AUTO 0.07 K/mm3 (0.00-0.68); EOSINOPHILS PERCENT AUTO 1 % (0-6); Hematocrit 51.6 % (33.0-51.0); Hemoglobin 16.7 g/dL (11.5-16.0); IMMATURE GRAN ABSOLUTE AUTO 0.02 K/mm3 (0.00-0.10); IMMATURE GRAN PERCENT AUTO 0 % (0-1); LYMPHOCYTES PERCENT AUTO 33 % (21-46); MONOCYTES ABSOLUTE AUTO 0.51 K/mm3 (0.16-1.47); MONOCYTES PERCENT AUTO 9 % (4-13); Mean Corpuscular HGB 32.2 pg (26.0-34.0); Mean Corpuscular HGB Conc 32.4 g/dL (31.5-36.5); Mean Corpuscular Volume 99 fL (80-100); Mean Platelet Volume 10.7 fL (9.1-12.4); NEUTROPHILS ABSOLUTE AUTO 3.07 K/mm3 (1.96-9.15); NEUTROPHILS PERCENT AUTO 56 % (41-73); Platelet Count 185 K/mm3 (150-400); RDW Coefficient Variation 12.5 % (11.7-14.2); RDW Standard Deviation 46.8 fL (35.1-46.3); Red Blood Cell Count 5.19 M/mm3 (3.80-5.20); White Blood Cell Count 5.49 K/mm3 (4.00-11.30)
[2020-05-08 04:01] LABS: Bun/Creatinine Ratio 4.5 (12.0-20.0); Calcium, Blood 8.7 mg/dL (8.5-10.1); Creatinine, Blood 6.04 mg/dL (0.40-1.00)
[2020-05-08 09:17] LABS: Albumin, Blood 2.1 g/dL (3.4-5.0); Anion Gap 8 mmol/L (6-16); Blood Urea Nitrogen 28 mg/dL (8-24); Bun/Creatinine Ratio 4.5 (12.0-20.0); CO2, Blood 30 mmol/L (21-32); Calcium, Blood 8.6 mg/dL (8.5-10.1); Chloride, Blood 101 mmol/L (98-108); Creatinine, Blood 6.27 mg/dL (0.40-1.00); Glomerular Filtration Rate 7 (60-); Glucose, Blood 210 mg/dL (70-99); Magnesium, Blood 2.2 mg/dL (1.6-2.4); Phosphorus, Blood 3.8 mg/dL (2.5-4.9); Potassium, Blood 3.4 mmol/L (3.5-5.5); Sodium, Blood 139 mmol/L (136-145)
[2020-05-09 06:11] LABS: BASOPHILS ABSOLUTE AUTO 0.03 K/mm3 (0.00-0.23); BASOPHILS PERCENT AUTO 0 % (0-2); EOSINOPHILS ABSOLUTE AUTO 0.15 K/mm3 (0.00-0.68); EOSINOPHILS PERCENT AUTO 1 % (0-6); Hematocrit 27.6 % (33.0-51.0); Hemoglobin 8.8 g/dL (11.5-16.0); IMMATURE GRAN ABSOLUTE AUTO 0.05 K/mm3 (0.00-0.10); IMMATURE GRAN PERCENT AUTO 0 % (0-1); LYMPHOCYTES PERCENT AUTO 30 % (21-46); MONOCYTES ABSOLUTE AUTO 0.98 K/mm3 (0.16-1.47); MONOCYTES PERCENT AUTO 9 % (4-13); Mean Corpuscular HGB 32.7 pg (26.0-34.0); Mean Corpuscular HGB Conc 31.9 g/dL (31.5-36.5); Mean Corpuscular Volume 103 fL (80-100); Mean Platelet Volume 10.6 fL (9.1-12.4); NEUTROPHILS ABSOLUTE AUTO 6.81 K/mm3 (1.96-9.15); NEUTROPHILS PERCENT AUTO 60 % (41-73); Platelet Count 341 K/mm3 (150-400); RDW Coefficient Variation 12.5 % (11.7-14.2); RDW Standard Deviation 47.1 fL (35.1-46.3); Red Blood Cell Count 2.69 M/mm3 (3.80-5.20); White Blood Cell Count 11.42 K/mm3 (4.00-11.30)
[2020-05-09 06:24] LABS: Anion Gap 7 mmol/L (6-16); Blood Urea Nitrogen 16 mg/dL (8-24); Bun/Creatinine Ratio 4.2 (12.0-20.0); CO2, Blood 32 mmol/L (21-32); Calcium, Blood 8.5 mg/dL (8.5-10.1); Chloride, Blood 101 mmol/L (98-108); Creatinine, Blood 3.82 mg/dL (0.40-1.00); Glomerular Filtration Rate 12 (60-); Glucose, Blood 237 mg/dL (70-99); Magnesium, Blood 2.2 mg/dL (1.6-2.4); Phosphorus, Blood 3.5 mg/dL (2.5-4.9); Potassium, Blood 3.6 mmol/L (3.5-5.5); Sodium, Blood 140 mmol/L (136-145)
[2020-05-10 04:20] LABS: BASOPHILS ABSOLUTE AUTO 0.03 K/mm3 (0.00-0.23); BASOPHILS PERCENT AUTO 0 % (0-2); EOSINOPHILS ABSOLUTE AUTO 0.15 K/mm3 (0.00-0.68); EOSINOPHILS PERCENT AUTO 1 % (0-6); Hematocrit 25.2 % (33.0-51.0); Hemoglobin 8.1 g/dL (11.5-16.0); IMMATURE GRAN ABSOLUTE AUTO 0.05 K/mm3 (0.00-0.10); IMMATURE GRAN PERCENT AUTO 0 % (0-1); LYMPHOCYTES ABSOLUTE AUTO 3.69 K/mm3 (0.84-5.20); LYMPHOCYTES PERCENT AUTO 31 % (21-46); MONOCYTES ABSOLUTE AUTO 1.02 K/mm3 (0.16-1.47); MONOCYTES PERCENT AUTO 9 % (4-13); Mean Corpuscular HGB 32.5 pg (26.0-34.0); Mean Corpuscular HGB Conc 32.1 g/dL (31.5-36.5); Mean Corpuscular Volume 101 fL (80-100); NEUTROPHILS ABSOLUTE AUTO 6.99 K/mm3 (1.96-9.15); NEUTROPHILS PERCENT AUTO 59 % (41-73); Platelet Count 308 K/mm3 (150-400); RDW Coefficient Variation 12.3 % (11.7-14.2); RDW Standard Deviation 45.8 fL (35.1-46.3); Red Blood Cell Count 2.49 M/mm3 (3.80-5.20); White Blood Cell Count 11.93 K/mm3 (4.00-11.30)
[2020-05-10 04:36] LABS: Anion Gap 7 mmol/L (6-16); Blood Urea Nitrogen 24 mg/dL (8-24); Bun/Creatinine Ratio 4.5 (12.0-20.0); CO2, Blood 31 mmol/L (21-32); Calcium, Blood 8.3 mg/dL (8.5-10.1); Chloride, Blood 99 mmol/L (98-108); Glomerular Filtration Rate 8 (60-); Glucose, Blood 255 mg/dL (70-99); Magnesium, Blood 2.2 mg/dL (1.6-2.4); Phosphorus, Blood 4.2 mg/dL (2.5-4.9); Potassium, Blood 3.6 mmol/L (3.5-5.5); Sodium, Blood 137 mmol/L (136-145)
[2020-05-11 04:25] LABS: Hematocrit 25.1 % (33.0-51.0); Hemoglobin 8.3 g/dL (11.5-16.0)
[2020-05-11 04:45] LABS: Anion Gap 8 mmol/L (6-16); Blood Urea Nitrogen 37 mg/dL (8-24); Bun/Creatinine Ratio 5.9 (12.0-20.0); CO2, Blood 29 mmol/L (21-32); Calcium, Blood 8.4 mg/dL (8.5-10.1); Chloride, Blood 98 mmol/L (98-108); Creatinine, Blood 6.31 mg/dL (0.40-1.00); Glomerular Filtration Rate 7 (60-); Glucose, Blood 210 mg/dL (70-99); Magnesium, Blood 2.2 mg/dL (1.6-2.4); Potassium, Blood 3.7 mmol/L (3.5-5.5); Sodium, Blood 135 mmol/L (136-145)
[2020-05-12 06:46] LABS: Hematocrit 22.6 % (33.0-51.0); Hemoglobin 7.3 g/dL (11.5-16.0)
[2020-05-12 06:56] LABS: Albumin, Blood 2.1 g/dL (3.4-5.0); Anion Gap 7 mmol/L (6-16); Blood Urea Nitrogen 49 mg/dL (8-24); Bun/Creatinine Ratio 7.1 (12.0-20.0); CO2, Blood 26 mmol/L (21-32); Calcium, Blood 8.3 mg/dL (8.5-10.1); Chloride, Blood 102 mmol/L (98-108); Creatinine, Blood 6.94 mg/dL (0.40-1.00); Glomerular Filtration Rate 6 (60-); Glucose, Blood 315 mg/dL (70-99); Magnesium, Blood 2.4 mg/dL (1.6-2.4); Sodium, Blood 135 mmol/L (136-145)
[2020-05-12 17:57] LABS: BASOPHILS ABSOLUTE AUTO 0.04 K/mm3 (0.00-0.23); BASOPHILS PERCENT AUTO 0 % (0-2); EOSINOPHILS ABSOLUTE AUTO 0.19 K/mm3 (0.00-0.68); EOSINOPHILS PERCENT AUTO 2 % (0-6); Hematocrit 22.9 % (33.0-51.0); Hemoglobin 7.6 g/dL (11.5-16.0); IMMATURE GRAN ABSOLUTE AUTO 0.05 K/mm3 (0.00-0.10); IMMATURE GRAN PERCENT AUTO 0 % (0-1); LYMPHOCYTES ABSOLUTE AUTO 3.39 K/mm3 (0.84-5.20); LYMPHOCYTES PERCENT AUTO 26 % (21-46); MONOCYTES ABSOLUTE AUTO 0.75 K/mm3 (0.16-1.47); MONOCYTES PERCENT AUTO 6 % (4-13); Mean Corpuscular HGB 32.8 pg (26.0-34.0); Mean Corpuscular HGB Conc 33.2 g/dL (31.5-36.5); Mean Corpuscular Volume 99 fL (80-100); Mean Platelet Volume 10.7 fL (9.1-12.4); NEUTROPHILS ABSOLUTE AUTO 8.45 K/mm3 (1.96-9.15); NEUTROPHILS PERCENT AUTO 66 % (41-73); Platelet Count 265 K/mm3 (150-400); RDW Coefficient Variation 12.7 % (11.7-14.2); Red Blood Cell Count 2.32 M/mm3 (3.80-5.20); White Blood Cell Count 12.87 K/mm3 (4.00-11.30)
[2020-05-13 04:27] LABS: Hematocrit 24.9 % (33.0-51.0); Hemoglobin 8.1 g/dL (11.5-16.0)
[2020-05-13 04:43] LABS: Albumin, Blood 2.2 g/dL (3.4-5.0); Anion Gap 5 mmol/L (6-16); Blood Urea Nitrogen 20 mg/dL (8-24); CO2, Blood 34 mmol/L (21-32); Calcium, Blood 8.3 mg/dL (8.5-10.1); Chloride, Blood 98 mmol/L (98-108); Creatinine, Blood 3.98 mg/dL (0.40-1.00); Glomerular Filtration Rate 12 (60-); Glucose, Blood 131 mg/dL (70-99); Magnesium, Blood 2.2 mg/dL (1.6-2.4); Phosphorus, Blood 3.9 mg/dL (2.5-4.9); Potassium, Blood 3.4 mmol/L (3.5-5.5); Sodium, Blood 137 mmol/L (136-145)
[2020-05-14 05:25] LABS: Hematocrit 25.5 % (33.0-51.0); Hemoglobin 8.1 g/dL (11.5-16.0)
[2020-05-14 05:45] LABS: Albumin, Blood 2.2 g/dL (3.4-5.0); Anion Gap 5 mmol/L (6-16); Blood Urea Nitrogen 28 mg/dL (8-24); Bun/Creatinine Ratio 5.9 (12.0-20.0); CO2, Blood 30 mmol/L (21-32); Calcium, Blood 8.8 mg/dL (8.5-10.1); Chloride, Blood 102 mmol/L (98-108); Creatinine, Blood 4.75 mg/dL (0.40-1.00); Glomerular Filtration Rate 9 (60-); Glucose, Blood 166 mg/dL (70-99); Magnesium, Blood 2.2 mg/dL (1.6-2.4); Phosphorus, Blood 3.8 mg/dL (2.5-4.9); Potassium, Blood 3.7 mmol/L (3.5-5.5); Sodium, Blood 137 mmol/L (136-145)
[2020-05-15 05:52] LABS: Hematocrit 25.1 % (33.0-51.0)
[2020-05-15 06:17] LABS: Albumin, Blood 2.2 g/dL (3.4-5.0); Anion Gap 6 mmol/L (6-16); Blood Urea Nitrogen 33 mg/dL (8-24); Bun/Creatinine Ratio 6.1 (12.0-20.0); CO2, Blood 27 mmol/L (21-32); Calcium, Blood 9.1 mg/dL (8.5-10.1); Chloride, Blood 102 mmol/L (98-108); Creatinine, Blood 5.44 mg/dL (0.40-1.00); Glomerular Filtration Rate 8 (60-); Glucose, Blood 225 mg/dL (70-99); Magnesium, Blood 2.4 mg/dL (1.6-2.4); Phosphorus, Blood 4.5 mg/dL (2.5-4.9); Potassium, Blood 4.4 mmol/L (3.5-5.5); Sodium, Blood 135 mmol/L (136-145); Vancomycin, Random 28.6 ug/mL
[2020-05-15 15:38] LABS: Vancomycin, Random 21.8 ug/mL
[2020-05-16 04:19] LABS: Hematocrit 29.4 % (33.0-51.0); Hemoglobin 9.6 g/dL (11.5-16.0)
[2020-05-16 04:39] LABS: Albumin, Blood 2.3 g/dL (3.4-5.0); Anion Gap 6 mmol/L (6-16); Blood Urea Nitrogen 20 mg/dL (8-24); Bun/Creatinine Ratio 5.7 (12.0-20.0); CO2, Blood 32 mmol/L (21-32); Calcium, Blood 8.7 mg/dL (8.5-10.1); Chloride, Blood 100 mmol/L (98-108); Creatinine, Blood 3.48 mg/dL (0.40-1.00); Glomerular Filtration Rate 14 (60-); Glucose, Blood 169 mg/dL (70-99); Magnesium, Blood 2.2 mg/dL (1.6-2.4); Phosphorus, Blood 3.4 mg/dL (2.5-4.9); Potassium, Blood 3.4 mmol/L (3.5-5.5); Sodium, Blood 138 mmol/L (136-145); Vancomycin, Random 21.3 ug/mL
[2020-05-16] MEDS ORDERED: Vitamin D2000 UNIT PO (15:04)
[2020-05-16] MEDS ORDERED: LEVE500 PO (15:04)
[2020-05-16] MEDS ORDERED: SPIR25 PO (15:04)
[2020-05-16] MEDS ORDERED: AMLO10 PO (16:01)
[2020-05-21 08:57] LABS: Result SEE LABOUT RESULTS
== END 2020-05-16 16:49 | disposition home health service (06) | DRG 853 ==
LOC: ER 13:25 → PCU 15:58 → MEDS 15:58 → PCU 17:31 → MEDS 05-13 15:24
PROVIDERS: Emergency Medicine; Family Medicine; Internal Medicine; Internal Medicine Infectious Disease; Internal Medicine Nephrology; Pharmacist; ADMIT Internal Medicine Gastroenterology
PROC: 05PY03Z Removal of Infusion Device from Upper Vein, Open Approach (ICD-10-PCS; principal; 2020-05-09)
DX: A41.9 Sepsis, unspecified organism (principal); I33.0 Acute and subacute infective endocarditis; N18.6 End stage renal disease; I63.332 Cerebral infarction due to thrombosis of left posterior cerebral artery; T85.71XA Infection and inflammatory reaction due to peritoneal dialysis catheter, initial encounter; I13.2 Hypertensive heart and chronic kidney disease with heart failure and with stage 5 chronic kidney disease, or end stage renal disease; I50.32 Chronic diastolic (congestive) heart failure; E87.1 Hypo-osmolality and hyponatremia; Z99.2 Dependence on renal dialysis; Z86.73 Personal history of transient ischemic attack (TIA), and cerebral infarction without residual deficits; E10.22 Type 1 diabetes mellitus with diabetic chronic kidney disease; I25.10 Atherosclerotic heart disease of native coronary artery without angina pectoris; E78.5 Hyperlipidemia, unspecified; I44.0 Atrioventricular block, first degree; E87.5 Hyperkalemia; D63.1 Anemia in chronic kidney disease; E86.9 Volume depletion, unspecified; E10.21 Type 1 diabetes mellitus with diabetic nephropathy; E10.319 Type 1 diabetes mellitus with unspecified diabetic retinopathy without macular edema; I25.2 Old myocardial infarction; Z99.3 Dependence on wheelchair
CPT/HCPCS: 36415; 36430; 36556; 51701; 51702; 70450; 70551; 71045; 76937; 80048; 80053; 80069; 80202; 81001; 82947; 83690; 83735; 83880; 84132; 84484; 85014; 85018; 85025; 85730; 86850; 86900; 86901; 86923; 87040; 87070; 87077; 87086; 87186; 87449; 93005; 93010; 93306; 93312; 93325; 94762; 97110; 97112; 97162; 97166; 97530; 97535; 99152; 99153; 99285-25; A9270; A9270-GY; C1750; C1751; C1769; C1894; J0690; J0881; J1644; J1940; J2248; J2250; J2270; J2405; J2543; J3010; J3370; J7030; J7040; J7050; J7799; P9016

== ENCOUNTER 2020-05-19 21:01 | Inpatient (IN) | payer BC, MEDICARE ==
[~2020-05-19] VITALS: Ht 167.6 cm; Wt 66.9 kg
[~2020-05-19 21:01] MED LIST changes: +ASPI325 PO; +BASAGLAR K100 UNIT/1 SC; +Coreg12.5 MG PO; +FURO80 PO; +HUMALOG100 UNIT/1 SC; +LEVE500 PO; +LOSARTAN POTAS100 MG PO; +Lipitor20 MG PO; +MERIBIN5 MG PO; +NIFE60ER PO; +Neurontin 100100 MG PO; +OMEP20ER PO; +SPIR25 PO; +VITAMIN B12 PO; +Vitamin B-121000 MCG PO; +Vitamin D2000 UNIT PO
[2020-05-19 22:01] LABS: BASOPHILS ABSOLUTE AUTO 0.03 K/mm3 (0.00-0.23); BASOPHILS PERCENT AUTO 0 % (0-2); EOSINOPHILS ABSOLUTE AUTO 0.16 K/mm3 (0.00-0.68); EOSINOPHILS PERCENT AUTO 2 % (0-6); Hematocrit 29.3 % (33.0-51.0); Hemoglobin 9.5 g/dL (11.5-16.0); IMMATURE GRAN ABSOLUTE AUTO 0.03 K/mm3 (0.00-0.10); IMMATURE GRAN PERCENT AUTO 0 % (0-1); LYMPHOCYTES ABSOLUTE AUTO 3.92 K/mm3 (0.84-5.20); LYMPHOCYTES PERCENT AUTO 45 % (21-46); MONOCYTES PERCENT AUTO 9 % (4-13); Mean Corpuscular HGB 31.6 pg (26.0-34.0); Mean Corpuscular HGB Conc 32.4 g/dL (31.5-36.5); Mean Corpuscular Volume 97 fL (80-100); Mean Platelet Volume 11.8 fL (9.1-12.4); NEUTROPHILS ABSOLUTE AUTO 3.81 K/mm3 (1.96-9.15); NEUTROPHILS PERCENT AUTO 44 % (41-73); Platelet Count 238 K/mm3 (150-400); RDW Coefficient Variation 14.6 % (11.7-14.2); Red Blood Cell Count 3.01 M/mm3 (3.80-5.20); White Blood Cell Count 8.75 K/mm3 (4.00-11.30)
[2020-05-19 22:27] LABS: Albumin, Blood 2.7 g/dL (3.4-5.0); Albumin/Globulin Ratio 0.6 (0.8-1.8); Bilirubin, Total 0.7 mg/dL (0.1-1.0); Creatinine, Blood 6.98 mg/dL (0.40-1.00); Globulin, Blood 4.3 g/dL (2.2-4.0); Potassium, Blood 4.3 mmol/L (3.5-5.5)
[2020-05-20 05:03] LABS: BASOPHILS ABSOLUTE AUTO 0.03 K/mm3 (0.00-0.23); BASOPHILS PERCENT AUTO 0 % (0-2); EOSINOPHILS ABSOLUTE AUTO 0.09 K/mm3 (0.00-0.68); EOSINOPHILS PERCENT AUTO 1 % (0-6); Hematocrit 31.1 % (33.0-51.0); IMMATURE GRAN ABSOLUTE AUTO 0.03 K/mm3 (0.00-0.10); IMMATURE GRAN PERCENT AUTO 0 % (0-1); LYMPHOCYTES ABSOLUTE AUTO 3.35 K/mm3 (0.84-5.20); LYMPHOCYTES PERCENT AUTO 49 % (21-46); MONOCYTES PERCENT AUTO 7 % (4-13); Mean Corpuscular HGB 31.3 pg (26.0-34.0); Mean Corpuscular HGB Conc 32.2 g/dL (31.5-36.5); Mean Corpuscular Volume 97 fL (80-100); Mean Platelet Volume 11.6 fL (9.1-12.4); NEUTROPHILS ABSOLUTE AUTO 2.84 K/mm3 (1.96-9.15); NEUTROPHILS PERCENT AUTO 42 % (41-73); Platelet Count 236 K/mm3 (150-400); RDW Coefficient Variation 14.6 % (11.7-14.2); RDW Standard Deviation 52.7 fL (35.1-46.3); White Blood Cell Count 6.84 K/mm3 (4.00-11.30)
[2020-05-20 05:35] LABS: Albumin, Blood 2.8 g/dL (3.4-5.0); Albumin/Globulin Ratio 0.6 (0.8-1.8); Bilirubin, Total 0.7 mg/dL (0.1-1.0); Bun/Creatinine Ratio 5.9 (12.0-20.0); Creatinine, Blood 7.17 mg/dL (0.40-1.00); Globulin, Blood 4.5 g/dL (2.2-4.0); Potassium, Blood 4.5 mmol/L (3.5-5.5); Total Protein, Blood 7.3 g/dL (6.4-8.2)
--- NOTE | 2020-05-20 05:39 | NUR ---
PT ARRIVED WITH TWO ED RN'S AT ABOUT 0400 05/20/20, ED RN NOTED THAT PT HAS BEEN HAVING SOME SEIZURE LIKE ACTIVITY WHEN MOVING AROUND OR COUGHING/DRY HEAVING. RN'S WERE TRANSFERRING PT FROM STRETCHER TO HOSPITAL BED, PT BEGAN TO GET NAUSEATED, VOMITED ~100ML EMESIS, AND RIGHT AFTER EYES ROLLED TO BACK OF HEAD, PT BECAME VERY STIFF, TELE CALLED TO NOTE PT HR MILVIA TO 15. THIS LASTED ABOUT 20 SEC, AND PT WAS BACK. VSS AFTER THIS EPISODE. AO TELE NSR ROOM AIR HAS ATTENDS ON SBA TO BSC - ALTHOUGH PROBABLY NOT SAFE TO TRANSFER IF EPISODES CONTINUE TO OCCUR EMESIS X1, ZOFRAN X1, NO BM AT BEDSIDE CALL LIGHT WITHIN REACH, BED IN LOWEST POSITION. WILL CONTINUE TO MONITOR.
--- NOTE | 2020-05-20 10:59 | NUR ---
AT 1017, PT WAS BEING ASSITED BACK TO BED FROM USING BSC. WHILE SITTING ON EDGE OF BED, PT STARTED COUGHING/ HAD SMALL AMOUNT OF EMESIS, THEN SHE BECAME UNRESPONSIVE AND HER BODY STIFFENED. REMOTE MONITORING CALLED AND REPORTED THAT PT WAS IN A VENTRICULAR STANDSTILL FOR APPOX 10SEC. PT'S WAS AT BEDSIDE FOR EVENT AND REPORTS THIS IS WHAT THE PT WAS DOING DURING HER "SEIZURE EPISODES". PT VOMITED AGAIN AND BECOME ALERT AFTER HR RETURNED TO BASELINE. VITALS WERE STABLE. DR CUENCA NOTIFIED AND CONSULT RECEIVED FOR CARDIOLOGY. DR PERKINS WAS CALLED AND NOTIFIED OF CONSULT. RECHECKED ON PT AND SHE IS RESTING IN BED, ALERT AND ABLE TO INTERACT.
--- NOTE | 2020-05-20 12:00 | NUR ---
REASSESSMENT PT IS ALERT, CONTINUES TO BE RESTLESS/MOANING IN BED. BUSINESS OPERATIONS SPECIALIST NOW AT BEDSIDE SETTING UP FOR DIALYSIS. INSTRUCTED PT AND FAMILY OF PAIN MEDICATION FREQUENCY AND THEY REQUEST TO DELAY PAIN MEDICATION UNTIL AFTER DIALYSIS COMPLETION. VITALS HAVE BEEN STABLE. PT HAS HAD NO FURTHER CARDIAC PAUSES SINCE EPISODE THIS AM.
[2020-05-20 14:22] LABS: Vancomycin, Random 9.1 ug/mL
--- NOTE | 2020-05-20 15:00 | NUR ---
PALLIATIVE CARE REFERRAL REC'D & ENTERED PER REQUEST OF PRODUCTION CONTROL MANAGER TO ASSIST FAMILY COMPLETE AN ADVANCED DIRECTIVE AT THEIR REQUEST. After review of EMR visit made to pt's room as dialysis tx was being completed. Pt is sleepy and doses in and out during my extended conversation with her daughter, Nancy. Pt had just been medicated for pain and was feeling much more comfortable and peaceful but unable to participate fully in our conversation today. Guillermo reports that she and her dad have realized that they need to complete and advanced directive with her mom and would like to do it as soon as possible. We reviewed the forms in detail both AD and POLST. I gave Nancy some literature to review and talk to her parents about in prep for Trupti designating her advanced care choices and alternate decision makers. I explained [place] law and [place] policy on hierarchy of decision makers. Nancy acknowledges that her mom's mentation and decision making abilities are waning, excelerated decline in cognition noted recently with "strokes". Pt has a complicated medical history and has been hospitalized numerous times in recent months for mitral valve endocarditis, sepsis, Dialysis line removal and replacement, CHF, CAD and arrythmias. She has opted to go home vs. more agressive tx at higher level of care or SNF recently. I explained pt's current orders for full code and full treatment to guillermo and possible consequences of a resuscitative effort if her mom has a cardiopulmonary arrest. Guillermo voiced great concern related to prolonging her mom's suffering. She and her parents will review goals and wishes for care and ask that staff be available to assist with documenting wishes and an advanced directive tomorrow. I will leave VM report for my coworkers to f/u with Darrian Lyles and Nancy tomorrow. Pt will not have dialysis scheduled for tomorrow. Guillermo very appreciative of the time to discuss concerns that she and her parents have been talking about for many weeks now.
--- NOTE | 2020-05-20 16:00 | NUR ---
REASSESSMENT PT IS APPEARING MORE COMFORTABLE THIS AFTERNOON AND IS MORE INTERACTIVE WITH STAFF. ABD IS MECHANICAL RESEARCH ENGINEER TO PALPTATION AND PT REPORTS PAIN IS IMPROVED. DIALYSIS WAS COMPLETED. NO FURTHER CARDIAC EVENTS NOTED ON TELEMETRY. PT REMAINS ON ROOM AIR. FAMILY HAD REQUESTED ASSISTANCE WITH ADVANCE DIRECTIVE PLANNING AND PALLITIVE CARE WAS CONSULTED.
--- NOTE | 2020-05-20 18:48 | NUR ---
SHIFT SUMMARY PT IS ALERT, ORIENTED TO PERSON/SURROUNDINGS, AND IS CALMER THIS EVENING. NO ADDITIONAL CARDIAC EVENTS CAUGHT ON MONITOR AFTER PT'S PAUSE THIS MORNING. DR YOUSSEF DID SEE PT TODAY AND MADE ADJUSTMENTS TO CARDIAC MEDS, SEE EMAR FOR NEW MEDS/DOSAGES. PT ENCOURAGED TO EAT, BUT DOESN'T HAVE MUCH OF AN APPETITE. VITALS HAVE REMAINED STABLE. TELEMETRY HAS SHOWN PT TO BE IN SINUS RHYTHM.
[2020-05-21 03:56] LABS: BASOPHILS ABSOLUTE AUTO 0.04 K/mm3 (0.00-0.23); BASOPHILS PERCENT AUTO 1 % (0-2); EOSINOPHILS ABSOLUTE AUTO 0.12 K/mm3 (0.00-0.68); EOSINOPHILS PERCENT AUTO 1 % (0-6); Hematocrit 28.2 % (33.0-51.0); IMMATURE GRAN ABSOLUTE AUTO 0.05 K/mm3 (0.00-0.10); IMMATURE GRAN PERCENT AUTO 1 % (0-1); LYMPHOCYTES PERCENT AUTO 40 % (21-46); MONOCYTES ABSOLUTE AUTO 0.68 K/mm3 (0.16-1.47); MONOCYTES PERCENT AUTO 8 % (4-13); Mean Corpuscular HGB 31.3 pg (26.0-34.0); Mean Corpuscular HGB Conc 31.9 g/dL (31.5-36.5); Mean Corpuscular Volume 98 fL (80-100); Mean Platelet Volume 11.6 fL (9.1-12.4); NEUTROPHILS ABSOLUTE AUTO 4.31 K/mm3 (1.96-9.15); NEUTROPHILS PERCENT AUTO 50 % (41-73); Platelet Count 227 K/mm3 (150-400); RDW Coefficient Variation 14.8 % (11.7-14.2); Red Blood Cell Count 2.88 M/mm3 (3.80-5.20)
[2020-05-21 04:06] LABS: Albumin, Blood 2.5 g/dL (3.4-5.0); Albumin/Globulin Ratio 0.6 (0.8-1.8); Bilirubin, Direct 0.1 mg/dL (0.0-0.3); Bilirubin, Indirect 0.3 mg/dL (0.1-0.7); Bilirubin, Total 0.4 mg/dL (0.1-1.0); Bun/Creatinine Ratio 5.3 (12.0-20.0); Calcium, Blood 8.7 mg/dL (8.5-10.1); Creatinine, Blood 5.43 mg/dL (0.40-1.00); Magnesium, Blood 2.3 mg/dL (1.6-2.4); Phosphorus, Blood 4.4 mg/dL (2.5-4.9); Potassium, Blood 3.8 mmol/L (3.5-5.5); Total Protein, Blood 6.5 g/dL (6.4-8.2)
--- NOTE | 2020-05-21 05:23 | NUR ---
PT RESTED FREQUENTLY THROUGH NIGHT AO, BUT LETHARGIC AND SLOW TO RESPOND ROOM AIR C/O ABD PAIN - NO EMESIS, NO NAUSEA OLIGURIC PT DID NOT HAVE SEIZURE LIKE/VAGAL DOWN EPISODES TONIGHT PAIN MEDS X2 VSS CALL LIGHT WITHIN REACH, BED IN LOWEST POSITION. AT BEDSIDE. WILL CONTINUE TO MONITOR.
--- NOTE | 2020-05-21 09:00 | NUR ---
ASSUMED CARE AT APPROXIMATELY 0730. PT ALERT AND ORIENTED TO SELF, PLACE, AND FOLLOWING DIRECTIONS. BP ELEVATED. O2 SATS REMAIN ABOVE 90% ON RA. PT DENIES ANY PAIN. ATTENDS SOILED AND CHANGED ALONG WITH LINEN. PT REFUSING MULTIPLE MEDICATIONS THIS AM AND WILL NOT LET THIS RN RECHECK BP. PT DOES NOT WANT REPOSITIONING AND REFUSES TO LET US MOVE HER. PT REFUSING TO LET THIS RN IMMIGRATION SPECIALIST IV ANTIBIOTIC. WILL ATTEMPT TO TRY AGAIN. AT BEDSIDE. PT ASKING TO LEAVE. BED ALARM ON. WILL CONTINUE TO MONITOR CLOSELY.
[2020-05-21 13:14] LABS: Source, Urine Catheter
[2020-05-21 13:16] LABS: Bilirubin, Urine Neg (Neg); Blood, Urine 1+ (Neg); Glucose Qualitative, Urine 3+ (Neg); Ketones, Urine Neg (Neg); Leukocyte Esterase, Urine 1+ (Neg); Nitrite, Urine Neg (Neg); Protein, Urine 4+ (Neg); Urobilinogen, Urine NORM (Normal)
[2020-05-21 13:25] LABS: Appearance, Urine Clear (Clear); Color, Urine Yellow (P-Yellow)
[2020-05-21 13:28] LABS: Amorphous Light (0-Heavy); Bacteria Few /hpf; Red Blood Cells, Urine 0-2 /hpf (0-2); Squamous Epithelial Cells Few /hpf (Few)
[2020-05-21 15:52] LABS: Vancomycin, Random 25.5 ug/mL
--- NOTE | 2020-05-21 16:52 | NUR ---
SHIFT SUMMARY PT ALERT AND ORIENTED AT THIS TIME. PT LETHARGIC AT TIMES AND FALLING ASLEEP IF NO ONE IS IN THE ROOM. VS STABLE. O2 SATS REMAIN ABOVE 90% ON RA. BP STABLE. HR NSR WITH FIRST DEGREE. PT DENIES ANY PAIN THIS SHIFT. NO PAUSES NOTED ON TELEMETRY THIS SHIFT AND NO SEIZURE LIKE ACTIVITY NOTED PER PREVIOUS SHIFT. GARCIA CATHETER PLACED THIS SHIFT DUE TO RETENTION. PT AND FAMILY TALKED WITH PALLIATIVE CARE AND CHANGED CODE STATUS THIS SHIFT. DAUGHTER AT BEDSIDE. WILL CONTINUE TO MONITOR CLOSELY AND REPORT TO ONCOMING RN. BED ALARM ON.
--- NOTE | 2020-05-21 18:11 | NUR ---
Met with pt and family this morning. pt uanble to participte in conversations. Pt sleepy and family sates she was making bizzare and confussed statements. Went stow with pt to try to get her more alert. Pts daughter and struggling with plan of care they had may questions about her needs. Husabnd and daughter reviewed advance directive and repecting choice book. Theyare torn because she is getting more confused and frail and wanting to refuse dialysis. They have an appointment tomorrow with hospice nurse to review the option of hospice. They are struggling with making the wrond decision. Review with them the commitments of dialysis. reviw of crative treatment and hospice and palliative can support pt until transition. With nursing staff review of her cardiac function and cardiology assessment. offed to have physician visit with update. after much discussion they decided tp would be better served by DNR and limited treatments and to continue dialysis for now. POlst completed and phsyciand [facility] manger updated.
--- NOTE | 2020-05-22 01:06 | NUR ---
ASSUMED CARE AT 1900. DAUGHTER RADHA AT BEDSIDE AT THIS TIME, THEN IN TO SLEEP BY HER SIDE THRU NOC,.DAUGHTER THOUGHT SHE HAD RESTLESS LEGS , LATER WHEN QUESTIONED, DENIES ANY PAIN, ANNOYED EASILY WITH TASKS AND QUESTIONS ABOUT COMFORT. MORE CONVERSIVE W/ IN ROOM AND HUSBANDS ENCOURAGEMENT . ETIENNE CARE/ BRUSHES OWN TEETH , AND DEEP BREATHING TO REQUEST. ASSISTS W/ EXTREME WEAKNESS FOR REPOSITIONING. SEEMS TO FORGET INSTRUCTIONS AND REMINDED AGAIN. LEGALLY BLIND AND ASSISTED IN THAT REGARD, SCAB LT HEEL DRIED AND NO DRAINAGE. MEPILEX PROTECTION. POOR APPETITE FOR DINNER AND ACCEPTS ONE DIET PUDDING FOR HS SNACK. BLOOD SUGAR 216, BUT ONLY LANTUS GIVEN. DENIES ABD PAIN. OFF TO SLEEP BY MID NOC, AFTER TURN
[2020-05-22 04:00] LABS: Hematocrit 29.8 % (33.0-51.0); Hemoglobin 9.4 g/dL (11.5-16.0)
[2020-05-22 04:18] LABS: Alanine Aminotransfer (ALT/SGP 74 U/L (12-78); Albumin, Blood 2.3 g/dL (3.4-5.0); Albumin/Globulin Ratio 0.6 (0.8-1.8); Alk Phos 239 U/L (50-136); Anion Gap 8 mmol/L (6-16); Aspartate Aminotrans (AST/SGOT 87 U/L (12-37); Bilirubin, Direct <0.1 mg/dL (0.0-0.3); Bilirubin, Indirect Unable to Calculate mg/dL (0.1-0.7); Bilirubin, Total 0.3 mg/dL (0.1-1.0); Blood Urea Nitrogen 34 mg/dL (8-24); Bun/Creatinine Ratio 5.4 (12.0-20.0); CO2, Blood 28 mmol/L (21-32); Calcium, Blood 8.5 mg/dL (8.5-10.1); Chloride, Blood 102 mmol/L (98-108); Creatinine, Blood 6.33 mg/dL (0.40-1.00); Globulin, Blood 3.9 g/dL (2.2-4.0); Glomerular Filtration Rate 7 (60-); Glucose, Blood 204 mg/dL (70-99); Magnesium, Blood 2.3 mg/dL (1.6-2.4); Phosphorus, Blood 4.7 mg/dL (2.5-4.9); Potassium, Blood 3.5 mmol/L (3.5-5.5); Sodium, Blood 138 mmol/L (136-145); Total Protein, Blood 6.2 g/dL (6.4-8.2)
--- NOTE | 2020-05-22 05:49 | NUR ---
AROUSED FOR TURNING. VERY SLEEPY AND NO CONVERSING. IN RECLINER NEXT TO SIDE OF BED AND DECLINES BED RAIL TO BE UP DUE TO CHAIR AT SIDE . BED ALARM ON AT ALL TIMES. COMFORTABLE BREATHING. NO PAUSES REPORTED VIA JIG MAKER. BUT DID NOT GET OUT OF BED . NO EPISODES OF COUGHING OR VOMITING. NO SEISURE LIKE ACTIVITY NOTED . NOT AWAKE ENOUGH TO OFFER FLUIDS
--- NOTE | 2020-05-22 09:39 | NUR ---
Pt. was brought down to dialysis as per order by Dr. Ruelas. As I was getting ready to get pt ready for tx, she told me very clearly that she was NOT going to do dialysis. She stated that she just wanted to go home to be with her . I tried to talk her into a quick, short tx and pt. stated no several times. Notified civil draftsman and she tried to talk to her with no success. Called pts. RN and she came talked with pt and pt told her no as well. RN took pt back to her room.
--- NOTE | 2020-05-22 10:22 | NUR ---
UPDATE PT TAKEN TO DIALYSIS FOR TREATMENT. PT REFUSED TO HAVE DIALYSIS. PT EDUCATED ON THE RISKS OF MISSING DIALYSIS AND THE BENEFITS OF TREATMENT. PT STILL REFUSES. PT BROUGHT BACK TO ROOM. VS STABLE. WILL CONTINUE TO MONITOR CLOSELY.
--- NOTE | 2020-05-22 15:36 | NUR ---
pt. in bed slow to talk ai spoke to the spouse and prayed for pt.
--- NOTE | 2020-05-22 17:02 | NUR ---
SHIFT SUMMARY PT ALERT AND ORIENTED TO SELF AND . PT CONFUSED AT TIMES THIS SHIFT CALLING OUT FOR FAMILY MEMBERS THAT ARE . VS STABLE. HR NSR WITH FIRST DEGREE HB. 02 SATS REMAIN ABOVE 90% ON RA. PT DENIES ANY PAIN. PT REFUSED DIALYSIS THIS SHIFT. FAMILY HAD LONG DISCUSSION WITH PHYSICIAN THIS SHIFT ABOUT PLAN OF CARE AND POSSIBLE HOSPICE. FAMILY AT BEDSIDE. GARCIA PATENT AND DRAINING CLEAR YELLOW URINE. WILL CONTINUE TO MONITOR CLOSELY AND REPORT TO ONCOMING RN.
--- NOTE | 2020-05-22 18:09 | NUR ---
pt reusied dialysis, leander signed review of pt with physician. family discussing hospice plan. spent time with pt fatigued and not participating in conversation.
--- NOTE | 2020-05-22 21:03 | NUR ---
CARE ASSUMPTION PT A&O X4 W/ FLAT & CALM AFFECT. PT VSS. SPO2 100% ON RA. MONITOR SHOWS SR W/ 1ST DEGREE BLOCK, HR 60's. PT ASKING SPOUSE AT BEDSIDE IF THEY CAN GO HOME TONIGHT. SPOUSE STATES THEY ARE WAITING TO GO HOME WHEN THINGS ARE LINED UP AND READY FOR PT TO GO HOME W/ HOSPICE. SPOUSE & ALSO STATING THEY WOULD LIKE TO CONTINUE W/ MEDICATION & CARE UNTIL THEY REACH HOME. PT UNSURE IF SHE WOULD LIKE DIALYSIS TOMORROW OR NOT, DISCUSSED THAT THAT WILL BE REASSESSED IN AM. WILL CONTINUE TO MONITOR & PROVIDE CARE.
--- NOTE | 2020-05-23 05:28 | NUR ---
SHIFT SUMMARY PT CONTINUES TO BE A&O X4, CALM, PLEASANT & COOPERATIVE W/ CARE. VSS. SPO2 > 92% ON RA. MONITOR SHOWING SB-SR W/ 1ST DEGREE BLOCK, HR 50's-60's. GARCIA CATH PATENT & DRAINING. PT INCONTINENT OF STOOL. PRN ETIENNE CARE/ATTENDS CHANGES PROVIDED. PT SPOUSE AT BEDSIDE T/O SHIFT. NO EVENTS OVER NIGHT. WILL CONTINUE TO MONITOR & PROVIDE CARE UNTIL REPORT OFF TO DAY SHIFT RN.
[2020-05-23 06:04] LABS: Alanine Aminotransfer (ALT/SGP 58 U/L (12-78); Albumin, Blood 2.3 g/dL (3.4-5.0); Albumin/Globulin Ratio 0.5 (0.8-1.8); Alk Phos 229 U/L (50-136); Aspartate Aminotrans (AST/SGOT 47 U/L (12-37); Bilirubin, Direct <0.1 mg/dL (0.0-0.3); Bilirubin, Indirect Unable to Calculate mg/dL (0.1-0.7); Bilirubin, Total 0.3 mg/dL (0.1-1.0); Globulin, Blood 4.4 g/dL (2.2-4.0); Total Protein, Blood 6.7 g/dL (6.4-8.2)
[2020-05-23 07:34] LABS: Hematocrit 31.8 % (33.0-51.0); Hemoglobin 10.2 g/dL (11.5-16.0)
--- NOTE | 2020-05-23 10:55 | NUR ---
ASSUME CARE THIS AM: AT BEDSIDE WHILE GETTING BEDSIDE REPORT THIS MORNING. PT IN BED RESTING. VITALS HRR SINUS 60'S, BP SYSTOLIC 170'S, SATS ABOVE 98% ON RA, AFEBRILE. PT HAD BREAKFAST THIS MORNING TOOK MEDS WITH NO ISSUES. PT AGREED TO HAVE DIALYSIS TODAY. DIALYSIS NOW ON GOING. NO OTHER ISSUES/CONCERN AT THIS TIME WILL MONITOR
--- NOTE | 2020-05-23 11:26 | NUR ---
Pt. is not doing well and may go for comfort care encouragewd pt. and prayed for her
[2020-05-23 11:52] LABS: Vancomycin, Random 10.9 ug/mL
--- NOTE | 2020-05-23 17:54 | NUR ---
PT SUMMARY: PT TO DISCHARGE TOMORROW VIA [facility]. NO ACUTE CHANGE FOR THE SHIFT, PT RECEIVED DIALYSIS TODAY VITALS STABLE HRR SINUS 65, BP SYSTOLIC 150'S, SATS ABOVE 95% ON RA, AFEBRILE. AND BROTHER AT BEDSIDE ALL DAY ASSISTING WITH PT FEEDINGS. VANCO DOSE WAS GIVEN TODAY. GARCIA DRAINING PATENT VIA GRAVITY. CALL LIGHTS IN REACH WILL REPORT TO ONCOMING SHIFT.
--- NOTE | 2020-05-23 21:29 | NUR ---
CARE ASSUMPTION PT A&O X4. VSS. SPO2 >92% ON RA. MONITOR SHOWS SR W/ 1ST DEGREE BLOCK, HR 70's. GARCIA CATH PATENT & DRAINING. PT INCONTINENT OF STOOL, ATTENDS IN PLACE. PT SPOUSE AT BEDSIDE. WILL CONTINUE TO MONITOR & PROVIDE CARE.
[2020-05-24 05:01] LABS: Alanine Aminotransfer (ALT/SGP 42 U/L (12-78); Albumin, Blood 2.4 g/dL (3.4-5.0); Albumin/Globulin Ratio 0.6 (0.8-1.8); Alk Phos 193 U/L (50-136); Aspartate Aminotrans (AST/SGOT 35 U/L (12-37); Bilirubin, Direct <0.1 mg/dL (0.0-0.3); Bilirubin, Indirect Unable to Calculate mg/dL (0.1-0.7); Bilirubin, Total 0.2 mg/dL (0.1-1.0); Total Protein, Blood 6.4 g/dL (6.4-8.2)
--- NOTE | 2020-05-24 05:32 | NUR ---
SHIFT SUMMARY PT CONTINUES TO BE A&O X4. VSS. SPO2 > 92% ON RA. MONITOR SHOWING SR W/ 1ST DEGREE BLOCK, HR 60's-70's. GARCIA CATH PATENT & DRAINING. PT SPOUSE AT BEDSIDE T/O SHIFT. PT AWAITING DISCHARGE HOME W/ HOSPICE TODAY. WILL CONTINUE TO MONITOR & PROVIDE CARE UNTIL REPORT OFF TO DAY SHIFT RN.
--- NOTE | 2020-05-24 08:00 | NUR ---
pt laying in bed, quiet, awake, denies pain or complaints reports she had a good night, lungs are clear t/o, resp even and unlabored, on r/a, no cough noted, hrr, tele in place running sr with first degree block, no edema noted, ppp+2, cap refill <3sec, vs stable, afebrile, iv site is clear and patent, btx4, abd flat soft nontender, campo cath draining clear yellow urine, skin has dressing to right heel, and multiple bruising to abd, moves upper ext well, but is weak, can wiggle feet, jose, call light in reach.,
--- NOTE | 2020-05-24 10:48 | NUR ---
pt has bee discharged to home on hospice, ambulance here to transport her via gurney, went over discharge instructions with spouce, he verbalized understanding, iv removed intact, left campo cath for retention, left via gurney.
== END 2020-05-24 10:37 | disposition hospice, home (50) | DRG 308 ==
LOC: ER 21:01 → MEDS 21:02 → PCU 21:02
PROVIDERS: Emergency Medicine; Internal Medicine; Internal Medicine Endocrinology, Diabetes & Metabolism; Internal Medicine Nephrology; Pharmacist; ADMIT Internal Medicine
PROC: 5A1D70Z Performance of Urinary Filtration, Intermittent, Less than 6 Hours Per Day (ICD-10-PCS; principal; 2020-05-21)
PROC: 5A1D70Z Performance of Urinary Filtration, Intermittent, Less than 6 Hours Per Day (ICD-10-PCS; 2020-05-21)
DX: I44.39 Other atrioventricular block (principal); N18.6 End stage renal disease; I63.9 Cerebral infarction, unspecified; J18.9 Pneumonia, unspecified organism; I13.2 Hypertensive heart and chronic kidney disease with heart failure and with stage 5 chronic kidney disease, or end stage renal disease; I50.32 Chronic diastolic (congestive) heart failure; N25.81 Secondary hyperparathyroidism of renal origin; I05.9 Rheumatic mitral valve disease, unspecified; R56.9 Unspecified convulsions; Z99.2 Dependence on renal dialysis; D63.1 Anemia in chronic kidney disease; Z51.5 Encounter for palliative care; Z66 Do not resuscitate; K21.9 Gastro-esophageal reflux disease without esophagitis; E11.319 Type 2 diabetes mellitus with unspecified diabetic retinopathy without macular edema; Z86.73 Personal history of transient ischemic attack (TIA), and cerebral infarction without residual deficits
CPT/HCPCS: 36415; 51703; 71045; 74177; 80048; 80053; 80076; 80202; 81001; 82140; 82248; 82947; 83605; 83690; 83735; 84100; 84132; 84145; 85014; 85018; 85025; 87040; 87086; 93005; 93010; 94760; 96365; 96366; 96372; 96374-59; 96375; 96375-59; 96376; 99285-25; A9270-GY; G0378; J0881; J1644; J2270; J2405; J2543; J3010; J3370; J7030; Q9967